=== PATIENT | female | born 1935 | race Caucasian/White ===

== ENCOUNTER → 2017-12-01 11:03 | Outpatient (CLI) | payer MEDICARE, SELFPAY ==
[2017-12-01 11:36] LABS: Absolute Lymphocyte Count 2.42 X10^3/ul (0.83-4.51); Basophil# 0.01 X10^3/uL; Basophil% 0.1 % (0-1); Eosinophil# 0.31 X10^3/uL; Eosinophils% 4.2 % (0-5); Hematocrit 47.5 % (37-47); Hemoglobin 15.1 g/dl (12.0-15.0); Lymphocyte # 2.42 X10^3/ul (4.0); Lymphocyte % 33.1 % (19-41); Mean Corp Hgb Conc 31.8 g/gl (32-36); Mean Corpuscular Hgb 29.4 pg (27.0-32.0); Mean Corpuscular Volume 92.6 fL (81-99); Mean Platelet Vol. 10.5 fl (6.2-12.0); Monocyte# 0.56 X10^3/uL; Monocyte% 7.7 % (0-10); Neutrophil % 54.8 % (47-70); Platelet Count 259 K/mm3 (150-450); RBC Distribution Width CV 13.6 % (11.6-14.6); RBC Distribution Width SD 46.1 fl (35.1-43.9); Red Blood Count 5.13 M/mm3 (4.2-5.4); White Blood Count 7.3 K/mm3 (4.4-11.0)
[2017-12-01 11:37] LABS: POSITIVE COUNT NO; POSITIVE DIFFERENTIAL NO; POSITIVE MORPHOLOGY NO
[2017-12-01 12:06] LABS: Vitamin B12 525 pg/mL (211-911)
[2017-12-01 12:13] LABS: AST(SGOT) 12 U/L (15-37); Alanine Aminotransfer ALT/SGPT 15 U/L (13-56); Albumin, Serum 3.8 g/dL (3.2-5.0); Alkaline Phosphatase 78 U/L (45-117); Anion Gap 6 (5-15); BUN 13 mg/dL (7-18); BUN/Creat Ratio 17.4 RATIO (10-20); Calcium,Total 8.9 mg/dL (8.5-10.1); Chloride 109 mmol/L (98-107); Creatinine, Serum 0.75 mg/dL (0.55-1.02); EST Glomerular Filtration Rate 79 mL/min (>60); Est Glom Filt Rate - Afr Amer 96 mL/min (>60); Globulin 3.8 g/dL (2.2-4.2); Glucose 74 mg/dL (74-106); Protein, Total 7.6 g/dL (6.4-8.2); Sodium Level 141 mmol/L (136-145); Thyroid Stim Hormone (TSH) 1.12 uIU/mL (0.358-3.74)
[2017-12-08 01:05] LABS: Rapid Plasmin Reagin (RPR) NONREACTIVE (NONREACTIVE)
== END ==
PROVIDERS: Family Provider Internal Medicine; PCP Internal Medicine; Visit Provider Psychiatry & Neurology Neurology
DX: F03.90 Unspecified dementia, unspecified severity, without behavioral disturbance, psychotic disturbance, mood disturbance, and anxiety (principal)
CPT/HCPCS: 36415; 80053; 82607; 84443; 85025; 86592

== ENCOUNTER → 2017-12-11 11:02 | Outpatient (CLI) | payer MEDICARE, SELFPAY ==
--- NOTE | 2017-12-11 11:33 | MRI_ITS ---
STUDY: MRI BRAIN WITHOUT CONTRAST REASON FOR EXAM: Female, 82 years old. Dementia. Forgetfulness x1 year. TECHNIQUE: Standardized multiplanar fat and water weighted pulse sequences were obtained. COMPARISON: CTA head and neck 06/10/2011. FINDINGS: No restricted diffusion to suspect acute or subacute ischemic infarct. No remote cortical-based ischemic infarct. Normal size of the ventricles and extra-axial spaces for the patient's age. Multiple periventricular and subcortical white matter T2 FLAIR hyperintensity foci in both cerebral hemispheres are chronic white matter ischemic changes. Normal bilateral basal ganglia. Normal thalami. There is no extra-axial fluid accumulation. Normal flow voids within the major intracranial circulation suggesting patency by spin echo criteria. Normal sella turcica, pituitary gland, infundibular stalk, optic chiasm and hypothalamus. Normal tectal plate and pineal gland. Normal midbrain, kalyan and medulla. Normal cerebellum. Normal basal cisterns. Normal bilateral temporal bones. Normal bilateral internal auditory canals. No demonstrated orbital abnormality, within the constraints of a routine brain study. Normal visualized paranasal sinuses. Normal calvarium and skull base. Normal visualized soft tissue structures. Normal visualized upper cervical spine. MRI/Brain without Contrast IMPRESSION: 1. No MRI evidence of acute or subacute ischemic infarct. 2. No MRI evidence of remote cortical-based ischemic infarct. 3. Multiple chronic white matter ischemic changes in both cerebral hemispheres. Electronically Signed: Prem Butler MD at 13:39 EDT , Service support ,
== END ==
PROVIDERS: Family Provider Internal Medicine; PCP Internal Medicine; Visit Provider Psychiatry & Neurology Neurology
DX: F03.90 Unspecified dementia, unspecified severity, without behavioral disturbance, psychotic disturbance, mood disturbance, and anxiety (principal); R41.3 Other amnesia
CPT/HCPCS: 70551

== ENCOUNTER → 2018-08-30 15:52 | Outpatient (CLI) | payer MEDICARE, SELFPAY ==
[2018-08-30 17:01] LABS: Absolute Lymphocyte Count 2.35 X10^3/ul (0.83-4.51); Absolute Neutrophil Count 5.5 X10^3/uL (2.0-7.7); Basophil# 0.03 X10^3/uL; Basophil% 0.3 % (0-1); Eosinophil# 0.62 X10^3/uL; Eosinophils% 6.7 % (0-5); Hematocrit 42.9 % (37-47); Hemoglobin 14.1 g/dl (12.0-15.0); Lymphocyte # 2.35 X10^3/ul (4.0); Lymphocyte % 25.4 % (19-41); Mean Corp Hgb Conc 32.9 g/gl (32-36); Mean Corpuscular Hgb 30.1 pg (27.0-32.0); Mean Corpuscular Volume 91.5 fL (81-99); Mean Platelet Vol. 10.5 fl (6.2-12.0); Monocyte# 0.71 X10^3/uL; Monocyte% 7.7 % (0-10); Neutrophil # 5.52 X10^3/uL (2.7-7.7); Neutrophil % 59.7 % (47-70); Platelet Count 266 K/mm3 (150-450); RBC Distribution Width CV 13.4 % (11.6-14.6); RBC Distribution Width SD 44.6 fl (35.1-43.9); Red Blood Count 4.69 M/mm3 (4.2-5.4); White Blood Count 9.3 K/mm3 (4.4-11.0)
[2018-08-30 17:10] LABS: POSITIVE COUNT NO; POSITIVE DIFFERENTIAL NO; POSITIVE MORPHOLOGY NO
[2018-08-30 17:20] LABS: Vitamin B12 508 pg/mL (211-911); Vitamin D,25 Hydroxy 27.1 ng/mL (29.95-100.01)
[2018-08-30 17:51] LABS: AST(SGOT) 18 U/L (15-37); Alanine Aminotransfer ALT/SGPT 23 U/L (13-56); Albumin, Serum 3.6 g/dL (3.2-5.0); Alkaline Phosphatase 78 U/L (45-117); Anion Gap 9 (5-15); BUN 25 mg/dL (7-18); BUN/Creat Ratio 25.8 RATIO (10-20); Calcium,Total 9.2 mg/dL (8.5-10.1); Chloride 105 mmol/L (98-107); Creatinine, Serum 0.97 mg/dL (0.55-1.02); EST Glomerular Filtration Rate 59 mL/min (>60); Est Glom Filt Rate - Afr Amer 71 mL/min (>60); Globulin 3.7 g/dL (2.2-4.2); Glucose 96 mg/dL (74-106); Protein, Total 7.3 g/dL (6.4-8.2); Sodium Level 139 mmol/L (136-145); Thyroid Stim Hormone (TSH) 1.22 uIU/mL (0.358-3.74)
[2018-08-31 01:11] LABS: Rapid Plasmin Reagin (RPR) NONREACTIVE (NONREACTIVE)
== END ==
PROVIDERS: Visit Provider Family Medicine Geriatric Medicine
DX: Z00.00 Encounter for general adult medical examination without abnormal findings (principal); E55.9 Vitamin D deficiency, unspecified; G30.9 Alzheimer's disease, unspecified
CPT/HCPCS: 36415; 80053; 82306; 82607; 82746; 84443; 85025; 86592

== ENCOUNTER → 2018-11-29 11:31 | Outpatient (CLI) | payer MEDICARE, SELFPAY ==
[2018-11-29 12:29] LABS: Absolute Lymphocyte Count 2.09 X10^3/ul (0.83-4.51); Absolute Neutrophil Count 3.6 X10^3/uL (2.0-7.7); Basophil# 0.03 X10^3/uL; Basophil% 0.4 % (0-1); Eosinophil# 0.46 X10^3/uL; Eosinophils% 6.6 % (0-5); Hematocrit 41.7 % (37-47); Hemoglobin 13.5 g/dl (12.0-15.0); Lymphocyte # 2.09 X10^3/ul (4.0); Lymphocyte % 30.2 % (19-41); Mean Corp Hgb Conc 32.4 g/gl (32-36); Mean Corpuscular Hgb 29.9 pg (27.0-32.0); Mean Corpuscular Volume 92.5 fL (81-99); Mean Platelet Vol. 10.5 fl (6.2-12.0); Monocyte# 0.69 X10^3/uL; Neutrophil # 3.64 X10^3/uL (2.7-7.7); Neutrophil % 52.7 % (47-70); Platelet Count 271 K/mm3 (150-450); RBC Distribution Width CV 13.5 % (11.6-14.6); RBC Distribution Width SD 44.6 fl (35.1-43.9); Red Blood Count 4.51 M/mm3 (4.2-5.4); White Blood Count 6.9 K/mm3 (4.4-11.0)
[2018-11-29 12:32] LABS: POSITIVE COUNT NO; POSITIVE DIFFERENTIAL NO; POSITIVE MORPHOLOGY NO
[2018-11-29 12:47] LABS: Vitamin D,25 Hydroxy 26.2 ng/mL (29.95-100.01)
[2018-11-29 12:50] LABS: ALB/GLOB Ratio 1.1 RATIO (0.9-2.4); AST(SGOT) 16 U/L (15-37); Alanine Aminotransfer ALT/SGPT 24 U/L (13-56); Albumin, Serum 3.6 g/dL (3.2-5.0); Alkaline Phosphatase 74 U/L (45-117); Anion Gap 4 (5-15); BUN 19 mg/dL (7-18); BUN/Creat Ratio 20.8 RATIO (10-20); Calcium,Total 9.1 mg/dL (8.5-10.1); Chloride 108 mmol/L (98-107); Creatinine, Serum 0.91 mg/dL (0.55-1.02); EST Glomerular Filtration Rate 62 mL/min (>60); Est Glom Filt Rate - Afr Amer 76 mL/min (>60); Globulin 3.4 g/dL (2.2-4.2); Glucose 96 mg/dL (74-106); Potassium 3.8 mmol/L (3.5-5.1); Sodium Level 141 mmol/L (136-145); Thyroid Stim Hormone (TSH) 1.41 uIU/mL (0.358-3.74)
== END ==
PROVIDERS: Visit Provider Family Medicine Geriatric Medicine
DX: E55.9 Vitamin D deficiency, unspecified (principal); I10 Essential (primary) hypertension
CPT/HCPCS: 36415; 80053; 82306; 84443; 85025

== ENCOUNTER → 2019-02-28 08:48 | Outpatient (CLI) | payer MEDICARE, SELFPAY ==
[2019-02-28 12:50] LABS: Absolute Lymphocyte Count 1.96 X10^3/uL (0.83-4.51); Absolute Neutrophil Count 4.1 X10^3/uL (2.0-7.7); Basophil# 0.02 X10^3/uL; Basophil% 0.3 % (0-1); Eosinophil# 0.31 X10^3/uL; Eosinophils% 4.4 % (0-5); Hematocrit 43.9 % (37-47); Hemoglobin 14.1 g/dL (12.0-15.0); Lymphocyte # 1.96 X10^3/ul (4.0); Lymphocyte % 27.8 % (19-41); Mean Corp Hgb Conc 32.1 g/dL (32-36); Mean Corpuscular Hgb 29.8 pg (27.0-32.0); Mean Corpuscular Volume 92.8 fL (81-99); Mean Platelet Vol. 10.4 fl (6.2-12.0); Monocyte# 0.59 X10^3/uL; Monocyte% 8.4 % (0-10); NRBC Flagged by Analyzer 0 % (0-5); Neutrophil # 4.13 X10^3/uL (2.7-7.7); Neutrophil % 58.7 % (47-70); Platelet Count 256 K/mm3 (150-450); RBC Distribution Width CV 12.9 % (11.6-14.6); RBC Distribution Width SD 43.9 fl (35.1-43.9); Red Blood Count 4.73 M/mm3 (4.2-5.4)
[2019-02-28 13:07] LABS: Vitamin D,25 Hydroxy 34.4 ng/mL (29.95-100.01)
[2019-02-28 13:37] LABS: ALB/GLOB Ratio 1.1 RATIO (0.9-2.4); AST(SGOT) 14 U/L (15-37); Alanine Aminotransfer ALT/SGPT 19 U/L (13-56); Albumin, Serum 3.8 g/dL (3.2-5.0); Alkaline Phosphatase 73 U/L (45-117); Anion Gap 4 (5-15); BUN 21 mg/dL (7-18); BUN/Creat Ratio 22.6 RATIO (10-20); Calcium,Total 9.8 mg/dL (8.5-10.1); Chloride 106 mmol/L (98-107); Creatinine, Serum 0.93 mg/dL (0.55-1.02); EST Glomerular Filtration Rate 61 mL/min (>60); Est Glom Filt Rate - Afr Amer 74 mL/min (>60); Globulin 3.5 g/dL (2.2-4.2); Glucose 82 mg/dL (74-106); Potassium 4.2 mmol/L (3.5-5.1); Protein, Total 7.3 g/dL (6.4-8.2); Sodium Level 140 mmol/L (136-145); Thyroid Stim Hormone (TSH) 1.42 uIU/mL (0.358-3.74)
== END ==
PROVIDERS: Family Provider Family Medicine Geriatric Medicine; PCP Family Medicine Geriatric Medicine; Visit Provider Family Medicine Geriatric Medicine
DX: E55.9 Vitamin D deficiency, unspecified (principal); I10 Essential (primary) hypertension
CPT/HCPCS: 36415; 80053; 82306; 84443; 85025

== ENCOUNTER → 2019-06-27 15:27 | Outpatient (CLI) | payer MEDICARE, SELFPAY ==
--- NOTE | 2019-06-27 15:31 | BI_ITS ---
MAMMOGRAPHY - UNILATERAL SCREENING: LEFT BREAST REASON FOR EXAM: Female, 83 years old. Routine annual screening examination (unilateral). PERTINENT HISTORY: Personal history of breast cancer. Prior right mastectomy. Mother with breast cancer. TECHNIQUE: Digital unilateral breast leon (3D mammographic acquisition) in the CC and MLO projections. 2-D mediolateral oblique (MLO) and craniocaudad (CC) views of both breasts were obtained. CAD: Full Field Digital Mammography with Computer Added Detection was performed. COMPARISON: Comparison is made with prior occipital examination dated June 26, 2018. FINDINGS: Breast Composition: The breasts are almost entirely fatty. There are no dominant masses or suspicious calcifications. No other significant abnormalities are identified. There has been no significant change since the prior study. BI/SCREEN MAMM (CAD) W/LEON UNI L IMPRESSION: Stable unilateral screening mammogram. Yearly follow-up mammogram recommended. (A) ASSESSMENT CATEGORY: BIRADS Category 1: Negative. A letter regarding these results will be sent to the patient by the facility within 30 days. Approximately 10% of breast cancers are not detected by mammography. A normal mammogram should not delay biopsy of a clinically suspicious abnormality. [id number] Electronically Signed: Jamar Rodgers, at 8:59 EST , Service support ,
== END ==
PROVIDERS: Family Provider Family Medicine Geriatric Medicine; PCP Family Medicine Geriatric Medicine; Referring Provider Family Medicine Geriatric Medicine; Visit Provider Family Medicine Geriatric Medicine
DX: Z12.31 Encounter for screening mammogram for malignant neoplasm of breast (principal); Z85.3 Personal history of malignant neoplasm of breast; Z90.11 Acquired absence of right breast and nipple; Z80.3 Family history of malignant neoplasm of breast
CPT/HCPCS: 77063; 77067

== ENCOUNTER → 2019-09-16 10:46 | Outpatient (CLI) | payer MEDICARE, SELFPAY ==
[2019-09-16 12:17] LABS: Absolute Lymphocyte Count 2.35 X10^3/uL (0.83-4.51); Absolute Neutrophil Count 5.2 X10^3/uL (2.0-7.7); Basophil# 0.04 X10^3/uL; Basophil% 0.4 % (0-1); Eosinophil# 0.46 X10^3/uL; Eosinophils% 5.2 % (0-5); Hematocrit 44.7 % (37-47); Hemoglobin 14.2 g/dL (12.0-15.0); Lymphocyte # 2.35 X10^3/ul (4.0); Lymphocyte % 26.4 % (19-41); Mean Corp Hgb Conc 31.8 g/dL (32-36); Mean Corpuscular Hgb 29.6 pg (27.0-32.0); Mean Corpuscular Volume 93.3 fL (81-99); Mean Platelet Vol. 10.4 fl (6.2-12.0); Monocyte# 0.83 X10^3/uL; Monocyte% 9.3 % (0-10); NRBC Flagged by Analyzer 0 % (0-5); Neutrophil # 5.19 X10^3/uL (2.7-7.7); Neutrophil % 58.5 % (47-70); Platelet Count 273 K/mm3 (150-450); RBC Distribution Width SD 44.4 fl (35.1-43.9); Red Blood Count 4.79 M/mm3 (4.2-5.4); White Blood Count 8.9 K/mm3 (4.4-11.0)
[2019-09-16 12:37] LABS: Vitamin D,25 Hydroxy 34.2 ng/mL (29.95-100.01)
[2019-09-16 12:48] LABS: ALB/GLOB Ratio 0.9 RATIO (0.9-2.4); AST(SGOT) 14 U/L (15-37); Alanine Aminotransfer ALT/SGPT 25 U/L (13-56); Albumin, Serum 3.5 g/dL (3.2-5.0); Alkaline Phosphatase 81 U/L (45-117); Anion Gap 4 (5-15); BUN 22 mg/dL (7-18); BUN/Creat Ratio 19.1 RATIO (10-20); Calcium,Total 9.9 mg/dL (8.5-10.1); Chloride 106 mmol/L (98-107); Creatinine, Serum 1.15 mg/dL (0.55-1.02); EST Glomerular Filtration Rate 48 mL/min (>60); Est Glom Filt Rate - Afr Amer 58 mL/min (>60); Globulin 3.9 g/dL (2.2-4.2); Glucose 86 mg/dL (74-106); Potassium 4.4 mmol/L (3.5-5.1); Protein, Total 7.4 g/dL (6.4-8.2); Sodium Level 140 mmol/L (136-145); Thyroid Stim Hormone (TSH) 1.16 uIU/mL (0.358-3.74)
== END ==
PROVIDERS: PCP Family Medicine Geriatric Medicine; Visit Provider Family Medicine Geriatric Medicine
DX: E55.9 Vitamin D deficiency, unspecified (principal); I10 Essential (primary) hypertension
CPT/HCPCS: 36415; 80053; 82306; 84443; 85025

== ENCOUNTER → 2019-10-18 | Outpatient (CLI) | payer MEDICARE, SELFPAY ==
--- NOTE | 2019-10-18 11:10 | LES_PTH ---
PATIENT: DIDI ADAIR LOC: [facility] U#:[id number] AGE/SX: 83/F ROOM: RE10/18/[address]: Dr. Devante Ruiz MD : [id number] BED: DIS: 10/18/2019 SPEC #: [id number] RECD: 10/18/19 15:21 STATUS: JONAS REFrank #: [id number] CHRISSY: 10/18/19 11:[address]: Devante Ruiz DEPT: SURGICAL PATHOLOGY RECD BY: Omar Tanner ENTERED: 10/21/19 07:00 SP TYPE: Lesion OTHR DR: Dr. Jayesh Chavez MD Tissues: Skin of eyelid, NOS Procedures: Surgery Specimen Level IV HEADER OPERATION: Exam RUL papilloma PRE-OP DIAGNOSIS: Growth last six months TISSUE SUBMITTED: RUL papilloma MICROSCOPIC DIAGNOSIS Right upper eyelid lesion, biopsy: Squamous papilloma. AM:helen 10/22/19 MICROSCOPIC DESCRIPTION Slides are reviewed. GROSS DESCRIPTION Received in fixative is one container labeled with the patient's name and designated RUL. The specimen consists of a piece of casey-white skin measuring 0.5 x 0.3 x 0.1 cm. The specimen is totally submitted in one cassette. / SJ:helen 10/21/19 TC:5 CPT: 18536
== END | disposition home or self-care (01) ==
LOC: LABSPEC 15:28
PROVIDERS: PCP Family Medicine Geriatric Medicine; Referring Provider Ophthalmology; Visit Provider Ophthalmology
DX: D23.111 Other benign neoplasm of skin of right upper eyelid, including canthus (principal)
CPT/HCPCS: 88305

== ENCOUNTER 2019-12-29 22:49 | Inpatient (IN) | payer MEDICARE, SELFPAY ==
[2019-12-29 22:49] VITALS: BP 141/88; PULSE 99; RESP 18; TEMP 36.3; O2SAT 93; BMI 31.6
--- NOTE | 2019-12-29 23:12 | EKG12_ITS ---
Test Reason : SOB Blood Pressure : / mmHG Vent. Rate : 080 BPM Atrial Rate : 080 BPM P-R Int : 164 ms QRS Dur : 112 ms QT Int : 414 ms P-R-T Axes : 051 068 206 degrees QTc Int : 477 ms Sinus rhythm with Premature supraventricular complexes Possible Left atrial enlargement Septal infarct , age undetermined Confirmed by RIDDHI COSTELLO, SAL ([id number]), desk editor JUAN JULIEN ([id number]) on 01/07/2020 1:52:36 PM Referred By: MAURI Confirmed By:SAL HANNON MD
--- NOTE | 2019-12-29 23:12 | RAD_ITS ---
STUDY: X-RAY CHEST REASON FOR EXAM: Female, 84 years old. CP, SOB TECHNIQUE: Frontal view COMPARISON: None. FINDINGS: There are mild fibrotic lung changes. The lungs are well-expanded. There is no demonstrated pleural abnormality. The heart is mildly enlarged. Normal mediastinum and sumaya. Normal visualized pulmonary arteries. Normal visualized aortic arch and descending thoracic aorta. Normal visualized thoracic spine. Normal visualized ribs, clavicles, and shoulders. There is no demonstrated abnormality of the visualized soft tissue structures of the upper abdomen. RAD/Chest 1 View (Portable) IMPRESSION: There are mild fibrotic lung changes. The lungs are well-expanded. There is no demonstrated pleural abnormality. The heart is mildly enlarged. Electronically Signed: Nathen Maddox MD at 1:51 EDT , Service support ,
--- NOTE | 2019-12-29 23:13 | ED.DCSUM_ITS ---
- ER Visit Summary Date of Service: 12/29/19 Chief Complaint: Shortness of breath and anxiety History of Present Illness: The patient is a 84 F 3 of dementia, hypertension and breast cancer 15 years ago. According to the daughter patient has had some intermittent episodes of shortness of breath and anxiety today. Denies any nausea, vomiting. No fever. No cough. No chest pain. No history of DVT or PE. No hemoptysis. No leg pain or swelling. No recent travel, surgery, hospitalization or immobilization. Physical Examination: Older female accompanied by her daughter vital signs are stable afebrile. Pulse ox 93% on room air no signs hypoxia. HEENT exam unremarkable. Neck nontender no JVD. No lymphadenopathy. Lungs clear to auscultation bilaterally. Heart regular rate and rhythm no murmur rate about 95. Abdomen soft nontender normal bowel sounds no peritoneal signs. Patient is moving all 4 extremities. Strong radial pulse. Calves are nontender without edema or cords. Neurologically she is awake and alert with no focal motor deficits. Test Results: Formal chest x-ray 1 view read by myself and the radiologist shows cardiomegaly with chronic fibrotic changes in the lungs. No pneumonia. No effusion. EKG shows a sinus rhythm rate of 80 with inverted T waves in V3 V5 which is new unchanged from prior EKG. There is no ST elevation. The most recent EKG I have for comparison is 9 years ago in 2010. CBC shows a white count 12.4. Hemoglobin 12.4. Chemistries unremarkable normal gap. Troponin indeterminate 0.21. Emergency Department Course and Treatment: Older female with reported dyspnea. Clinically has an unimpressive exam. Treatment Plan: Repeat exam 2:27 AM. Patient her daughter and I discussed her test results. With an abnormal EKG and indeterminate troponin with a history of shortness of breath she will be admitted for further evaluation. Again she is never had a DVT or PE or risk factors for that. I discussed any risk factors with her daughter. Disposition: Admission Impression: Acute dyspnea of uncertain etiology Normal EKG with changes from prior and indeterminate troponin History of dementia This note was generated with [employer] software. It may contain incorrect words, spelling, and punctuation that were not noted in review of the chart prior to signing ED Disposition - Plan for ED Patient: Referrals: Jayesh Chavez Chi, MD [Primary Care Provider] -
[2019-12-30] VITALS (12 sets, daily range): BP systolic 118–139; BP diastolic 68–91; PULSE 64–88; RESP 16–26; TEMP 36.4–36.8; O2SAT 90–99; BMI 30.1; BMI 31.6
[2019-12-30 00:37] LABS: Absolute Lymphocyte Count 1.22 X10^3/uL (0.83-4.51); Absolute Neutrophil Count 10.1 X10^3/uL (2.0-7.7); Basophil# 0.04 X10^3/uL; Basophil% 0.3 % (0-1); Eosinophil# 0.16 X10^3/uL; Eosinophils% 1.3 % (0-5); Hemoglobin 12.4 g/dL (12.0-15.0); Lymphocyte # 1.22 X10^3/ul (4.0); Lymphocyte % 9.9 % (19-41); Mean Corpuscular Hgb 30.2 pg (27.0-32.0); Mean Corpuscular Volume 97.3 fL (81-99); Mean Platelet Vol. 10.9 fl (6.2-12.0); Monocyte# 0.76 X10^3/uL; Monocyte% 6.1 % (0-10); NRBC Flagged by Analyzer 0 % (0-5); Neutrophil # 10.13 X10^3/uL (2.7-7.7); Platelet Count 249 K/mm3 (150-450); RBC Distribution Width CV 13.7 % (11.6-14.6); RBC Distribution Width SD 48.4 fl (35.1-43.9); Red Blood Count 4.11 M/mm3 (4.2-5.4); White Blood Count 12.4 K/mm3 (4.4-11.0)
[2019-12-30 01:01] LABS: Anion Gap 5 (5-15); BUN 17 mg/dL (7-18); BUN/Creat Ratio 17.7 RATIO (10-20); Chloride 107 mmol/L (98-107); Creatinine, Serum 0.96 mg/dL (0.55-1.02); EST Glomerular Filtration Rate 59 mL/min (>60); Est Glom Filt Rate - Afr Amer 71 mL/min (>60); Estimated Creatinine Clearance 39.25 ml/min; Glucose 139 mg/dL (74-106); Potassium 4.6 mmol/L (3.5-5.1); Sodium Level 139 mmol/L (136-145)
[2019-12-30 02:12] LABS: Bacteria 0 SEEN /hpf (None Seen); Mucous, Urine 0 SEEN /hpf (<or=2+); Red Blood Cells-Urine 0 SEEN /hpf (0-5); Squamous Epithelial Cells - UA 0 SEEN /hpf (5-10)
[2019-12-30 02:13] LABS: Color, Urine Yellow (Yellow); Glucose, Dipstick Normal (Normal); Ketone-Dipstick Negative (Negative); Leukocyte Esterase-Dipstick 100 /ul (Negative); Nitrite-Dipstick Negative (Negative); Occult Blood-Urine Negative /ul (Negative); Protein-Dipstick Negative (Negative); Specific Gravity, Urine 1.025 (1.002-1.030); Urine Bilirubin Dipstick Negative (Negative); Urine Clarity Clear (Clear); Urine Urobilinogen Normal (Normal)
--- NOTE | 2019-12-30 02:33 | PCM.HP.STD ---
Problem List (1) Sepsis Status: Acute (2) UTI (urinary tract infection) Status: Acute (3) Abnormal EKG Status: Acute (4) Elevated troponin Status: Acute History of Present Illness Date of Admission: 12/30/19 Chief Complaint: sob The patient is a 84 year old F with a significant history of breast cancer status post mastectomy and chemoradiation; hypertension and dementia who presents emergency department with shortness of breath. Her symptoms started on the same day of presentation. Associated for symptoms is productive cough of clear sputum. Her cough is not enough to bother him. Reportedly she has been having post nasal drip. At emergency department her troponin was elevated. She had leukocytosis. She had tachypnea and abnormal urinalysis. Past Medical History Medical History: Medical History (Last Updated 12/30/19 @ 03:[address] Reg Luevano MD) HTN (hypertension) I10 Allergies No Known Allergies Allergy (Verified 12/29/19 22:51) Home Medications: Ambulatory Orders Medication Instructions Recorded Ascorbic Acid [Vitamin C] 1,000 mg PO DAILY 12/30/19 Calcium Carbonate/Vitamin D3 600 mg PO DAILY 12/30/19 [Calcium 600 + Vit D Tablet] Cholecalciferol (VIT D3) [Vitamin 1,000 unit PO DAILY 12/30/19 D] Donepezil HCl [Aricept] 10 mg PO DAILY 12/30/19 Lisinopril/Hydrochlorothiazide 1 ea PO DAILY 12/30/19 [Lisinopril-Hctz 20-12.5 mg Tab] Memantine HCl 10 mg PO BID 12/30/19 Sertraline HCl 50 mg PO DAILY 12/30/19 Timolol 0.5% [Timoptic] 1 drp EACH EYE BID 12/30/19 Surgical History: mastectomy Lives: With Family Smoking Status: Former smoker - *Family History Maternal History Items: - - Denies maternal medical history Paternal History Items: - - Denies pertinent medical history Review of Systems Constitutional: Denies: Chills, Fever, Weight Change HEENT: Denies: Head Aches, Sinus Congestion, Sinus Drainage Cardiovascular: Denies: Chest Pain, Palpitations Respiratory: Denies: Cough, Shortness of breath at rest, Sputum production Gastrointestinal: Denies: Abdominal Pain, Nausea, Vomiting Genitourinary: Denies: Dysuria Musculoskeletal: Denies: Joint Pain, Joint Tenderness Skin: Denies: Rash, Wounds Neurological: Denies: Numbness, Tingling, Focal weakness Psychiatric: Reports: Anxiety. Denies: Depression, Homicidal Ideations, Suicidal Ideations Hematologic/ Lymphatic: Denies: Easy Bruising, Easy Bleeding VTE Information - Inpt Only VTE Present on Admission: No VTE Mechan Device Prophylaxis: None VTE Pharm Prophylaxis ordered?: Yes Patient Problems: Active and Suspected Problems (Last Updated 12/30/19 @ 03:[address] Reg Luevano MD) Sepsis (Acute) UTI (urinary tract infection) (Acute) Abnormal EKG (Acute) Elevated troponin (Acute) - Physical Exam Vitals/I&O's: Vital Signs Temp Pulse Resp BP Pulse Ox 97.9 F 75 19 H 133/72 H 93 12/30/19 01:43 12/30/19 01:43 12/30/19 01:43 12/30/19 01:43 12/30/19 01:43 Oxygen Flow Rate (L/min) 2 Oxygen Delivery Method Nasal Cannula Weight: 86.183 kg Body Mass Index (BMI) 31.6 General: Alert, Oriented x3, Cooperative HEENT: Atraumatic, PERRLA, EOMI, Normocephalic Neck: Supple, No JVD, Negative Carotid Bruits Lungs: Clear to auscultation, Normal air movement, Tachypneic Cardiovascular: Regular rate, Normal S1, Normal S2, No murmurs Abdomen: Bowel Sounds Present, Soft, Non Tender Extremities: No edema, Capillary Refill Less than 3 Seconds Skin: No rashes, No breakdown Musculoskeletal: No Tenderness to Palpation of Joints or Extremities Neurological: Cranial nerves II-XII grossly intact Psych/Mental Status: Normal Affect, Appropriate Laboratory Results 12/30/19 00:29: WBC 12.4 H, RBC 4.11 L, Hgb 12.4, Hct 40.0, MCV 97.3, MCH 30.2, MCHC 31.0 L, RDW Std Deviation 48.4 H, RDW Coeff of Michael 13.7, Plt Count 249, MPV 10.9, Immature Gran % (Auto) 0.400, Neut % (Auto) 82.0 H, Lymph % (Auto) 9.9 L, [place] % (Auto) 6.1, Eos % (Auto) 1.3, Baso % (Auto) 0.3, Absolute Neuts (auto) 10.1 H, Absolute Lymphs (auto) 1.22, Nucleated RBC % 0 12/30/19 00:29: Sodium 139, Potassium 4.6, Chloride 107, Carbon Dioxide 27.0, Anion Gap 5, BUN 17, Creatinine 0.96, Estim Creat Clear Calc 39.25, Est GFR (MDRD) Af Amer 71, Est GFR (MDRD) Non-Af 59 L, BUN/Creatinine Ratio 17.7, Glucose 139 H, Calcium 9.0, Troponin I 0.210 H 12/30/19 02:05: Urine Color Yellow, Urine Clarity Clear, Urine pH 5.0, Ur Specific [place] 1.025, Urine Protein Negative, Urine Glucose (UA) Normal, Urine Ketones Negative, Urine Occult Blood Negative, Urine Nitrite Negative, Urine Bilirubin Negative, Urine Urobilinogen Normal, Ur Leukocyte Esterase 100 H, Urine RBC Pending, Urine WBC Pending, Ur Squamous Epith Cells Pending, Urine Bacteria Pending, Urine Mucus Pending Assessment/Plan All Active Problems (Last Updated 12/30/19 @ 03:[address] Reg Luevano MD) Sepsis (Acute) UTI (urinary tract infection) (Acute) Abnormal EKG (Acute) Elevated troponin (Acute) The patient is a 84 year old F with a significant history of hypertension and dementia who presents emergency department with shortness of breath; productive cough and found to have abnormal urinalysis; and elevated troponin as well as a tachypnea and leukocytosis. Dyspnea of unclear etiology. Admit to PCU since troponin is elevated. Discussed with admitted department doctor to get a covid screen which returned negative. Her overall risk for COVID is negative so admitted to regular floor?PCU. Chest x-ray is unrevealing. Different diagnoses include anxiety. Elevated troponin/abnormal EKG Trend Repeat EKG in a.m. Sepsis Patient meets SIRS with tachypnea and leukocytosis. Of note she has no urinary symptoms and her urine bacteria is negative. However she has elevated leukocyte esterase. Will treat as sepsis secondary to cystitis. Start ceftriaxone. Get blood cultures. Get lactic acid. Trend CBC and BMP. Hypertension On presentation blood pressure was now within goal. Continue adequate thiazide and lisinopril. Trend blood pressures. Adjust blood pressure medication as necessary. DVT Prophylaxis Subcutaneous Lovenox. Inpatient E&M: 29555 Init Hosp L3
[2019-12-30 02:35] LABS: White Blood Cells 10-25 SEEN /hpf (0-5)
[2019-12-30 07:08] LABS: Lactic Acid 0.7 mmol/L (0.4-1.9)
[2019-12-30] MEDS: Ceftriaxone 1 GM/50 ML BAG IV (08:18)
[2019-12-30] MEDS: Enoxaparin 40 MG/0.4 ML Syringe SC (08:19)
[2019-12-30] MEDS: Memantine Hydrochloride 10 MG Tablet PO ×2 (08:19→22:48)
[2019-12-30] MEDS: hydroCHLOROthiazide 12.5mg 12.5 MG PO (08:19)
[2019-12-30] MEDS: Lisinopril 20 MG Tablet PO (08:19)
[2019-12-30] MEDS: Donepezil HCl 10 MG Tablet PO (08:19)
[2019-12-30] MEDS: Sertraline 50 MG Tablet PO (08:19)
[2019-12-30] MEDS: Timolol 0.5% 5ML OPTH.BTL 1 DRP EACH EYE ×2 (08:21→22:49)
--- NOTE | 2019-12-30 08:28 | ECHOCS_ITS ---
Reason For Study: ELEVATED TROPONIN Procedure This was a 2D Doppler, Color Flow transthoracic echocardiogram. Contrast injection was performed. Exam performed portable in patient room. Left Ventricle Mildly dilated left ventricle. Layered thrombus in LV apex. The estimated ejection fraction is 35 %. Stage 2 diastolic dysfunction. There are regional wall motion abnormalities as specified. Right Ventricle Normal RV size. Normal systolic function. Atria The left atrium is moderately enlarged. Normal right atrium. Mitral Valve Normal mitral valve. Tricuspid Valve Normal tricuspid valve. Mild (1+) eccentric tricuspid valve insufficiency. Pulmonary artery systolic pressure is 34 mmHg. Aortic Valve Trisinus/trileaflet aortic valve. Mild (1+) aortic valve insufficiency. Pulmonic Valve Normal pulmonic valve. Great Vessels Normal aortic root. The pulmonary artery is normal size. Normal inferior vena cava. Pericardium/Pleural No pericardial effusion. Medication Diluted definity 3.0ml given slow IV push to enhance endocardial definition. MMode/2D Measurements & Calculations LVIDd: 6.1 cm IVSd: 1.0 cm LVOT diam: 2.0 cm LVIDs: 5.1 cm LVPWd: 0.76 cm RVDd: 3.5 cm FS: 17.1 % LVOT area: 3.0 cm2 Ao root diam: 3.2 cm LAV(MOD-bp): 81.4 ml LA A4 area: 27.1 cm2 LAV(MOD-bp) Indexed: 42.0 ml/m2 LAV(MOD-sp2): 57.1 ml LAV(MOD-sp4): 99.5 ml LA dimension(2D): 4.8 cm RA A4 area: 17.3 cm2 Time Measurements MV dec time: 0.18 sec Doppler Measurements & Calculations MV E max rustam: 80.1 cm/sec Lat Peak E' Rustam: 4.3 cm/sec Med Peak E' Rustam: 2.5 cm/sec MV A max rustam: 55.6 cm/sec E/E' lat: 18.8 E/E' med: 32.2 MV E/A: 1.4 Ao V2 max: 196.8 cm/sec AI max rustam: 289.6 cm/sec LV V1 max: 75.0 cm/sec Ao max P.5 mmHg AI max P.6 mmHg LV V1 max P.3 mmHg Ao V2 mean: 147.8 cm/sec AI dec slope: 183.6 cm/sec2 LV V1 mean P.5 mmHg Ao mean P.5 mmHg AI P1/2t: 462.0 msec LV V1 mean: 57.7 cm/sec Ao V2 VTI: 42.5 cm LV V1 VTI: 16.8 cm EMANI(I,D): 1.2 cm2 EMANI(V,D): 1.2 cm2 SV(LVOT): 51.0 ml PA V2 max: 86.5 cm/sec PI end-d rustam: 102.9 cm/sec TR max rustam: 264.6 cm/sec TR max P.2 mmHg Interpretation Summary Mildly dilated left ventricle. The estimated ejection fraction is 35 %. Stage 2 diastolic dysfunction. Layered thrombus in LV apex Mild (1+) eccentric tricuspid valve insufficiency. The left atrium is moderately enlarged. Ordering Physician: Curtis Welch Referring Physician: JOSELYN JOHNSON Performed By: Delphine Simmons, ARIN, RVT
--- NOTE | 2019-12-30 10:28 | CON.PCM_ITS ---
Reason for Consult Date of Consultation: 12/30/19 Reason for Consultation: Shortness of breath and abnormal cardiac enzymes History of Present Illness: The patient is a 84 year old F with a previous history of hypertension as well as breast carcinoma status post mastectomy 15 years ago and with chemotherapy and radiation. She presented to the emergency room because of progressive shortness of breath. She has had no dizziness or diaphoresis no near syncope or syncope. She has been compliant with her medication. She was seen in the emergency room and noted to have an abnormal EKG and mildly abnormal cardiac troponin enzymes. She denies any chest pain or pedal edema. She has not seen a second facing baster. As part of her work-up an echocardiogram was performed which demonstrated left ventricular systolic dysfunction. [] Past Medical History Allergies/Adverse Reactions: Allergies No Known Allergies Allergy (Verified 12/29/19 22:51) Home Medications: Ambulatory Orders Medication Instructions Recorded Ascorbic Acid [Vitamin C] 1,000 mg PO DAILY 12/30/19 Calcium Carbonate/Vitamin D3 600 mg PO DAILY 12/30/19 [Calcium 600 + Vit D Tablet] Cholecalciferol (VIT D3) [Vitamin 1,000 unit PO DAILY 12/30/19 D] Donepezil HCl [Aricept] 10 mg PO DAILY 12/30/19 Lisinopril/Hydrochlorothiazide 1 ea PO DAILY 12/30/19 [Lisinopril-Hctz 20-12.5 mg Tab] Memantine HCl 10 mg PO BID 12/30/19 Sertraline HCl 50 mg PO DAILY 12/30/19 Timolol 0.5% [Timoptic] 1 drp EACH EYE BID 12/30/19 Surgical History: mastectomy - *Family History Maternal History Items: - - Denies maternal medical history Paternal History Items: - - Denies pertinent medical history Lives: With Family Smoking Status: Former smoker Alcohol: None Drugs: None Review of Systems - Review of Systems General: Reports: Fatigue. Denies: Fever, Night Sweats HEENT: Denies: Vision Change Cardiovascular: Reports: Shortness of Breath. Denies: Chest Discomfort, Orthopnea, PND, Peripheral Edema, Palpitations, Lightheadedness, Dizziness, Near Syncope, Syncope Respiratory: Denies: Cough, Sputum Production, Hemoptysis Gastrointestinal: Denies: Hematemesis, Hematochezia, Melena Genitourinary: Denies: Dysuria, Hematuria Muscoloskeletal: Denies: Myalgias Skin: Denies: Rash Neurological: Denies: Dizziness Psychiatric: Denies: Anxiety Endocrine: Denies: Unexplained Weight Loss Subjectve: Pleasant lady in no distress appears to be minimally confused Objective: Vital Signs Temp Pulse Resp BP Pulse Ox 97.7 F L 64 16 118/68 98 12/30/19 06:10 12/30/19 06:10 12/30/19 06:10 12/30/19 06:10 12/30/19 06:10 Oxygen Flow Rate (L/min) 2 Oxygen Delivery Method Room Air Weight: 186 lb 11.704 oz Body Mass Index (BMI) 30.1 Intake and Output for Last 24 Hours 12/28/19 12/29/19 12/30/19 23:59 23:59 23:59 Intake Total 50 / 50 Balance 50 / 50 General: Awake, Alert, Oriented x 3 HEENT: PERRL, EOMI, Sclera Non Icteric Neck: Supple, Good ROM, No Lymph Node Enlargement Lungs: Clear to auscultation Cardiovascular: Regular Rhythm, Normal S1, Normal S2, No Murmurs, No Rubs, No Gallops Vascular: No Carotid Bruits, Normal Femoral Pulses, Normal Radial Pulses, Normal Dorsalis Pedal Pulse, Normal Posterior Tibial Pulses Abdomen: Bowel Sounds Present, Soft, Non Tender, No HSM, No Organomegaly Extremities: No Cyanosis, No Clubbing, No edema, - - Mild varicosities Musculoskeletal: No Erythema Skin: No Rashes Lymphatic: No Lymph Node Enlargement Neurological: No Focal Motor or Sensory Deficit Psych/Mental Status: Appropriate 12/30/19 00:29: WBC 12.4 H, RBC 4.11 L, Hgb 12.4, Hct 40.0, MCV 97.3, MCH 30.2, MCHC 31.0 L, Plt Count 249, MPV 10.9, Immature Gran % (Auto) 0.400, Neut % (Auto) 82.0 H, Lymph % (Auto) 9.9 L, [place] % (Auto) 6.1, Eos % (Auto) 1.3, Baso % (Auto) 0.3, Absolute Neuts (auto) 10.1 H, Nucleated RBC % 0 12/30/19 00:29: Sodium 139, Potassium 4.6, Chloride 107, Carbon Dioxide 27.0, Anion Gap 5, BUN 17, Creatinine 0.96, Est GFR (MDRD) Af Amer 71, Est GFR (MDRD) Non-Af 59 L, BUN/Creatinine Ratio 17.7, Glucose 139 H, Calcium 9.0, Troponin I 0.210 H 12/30/19 02:05: Urine Color Yellow, Urine Clarity Clear, Urine pH 5.0, Ur Specific [place] 1.025, Urine Protein Negative, Urine Glucose (UA) Normal, Urine Ketones Negative, Urine Occult Blood Negative, Urine Nitrite Negative, Urine Bilirubin Negative, Urine Urobilinogen Normal, Ur Leukocyte Esterase 100 H, Urine RBC 0 SEEN, Urine WBC 10-25 SEEN 12/30/19 06:36: Lactic Acid 0.7 12/30/19 07:49: Troponin I 0.180 H Rhythm: EKG: Normal sinus rhythm with T wave inversion noted in lead V3 ECHO: LV dysfunction with probable apical thrombus Stress Test: Cardiac Cath: PCI: CT Surgery: Holter monitor: EPS: PPM: CXR: Chest CT Scan: Assessment/Plan 1. Left ventricular systolic dysfunction * Patient presents with shortness of breath and mildly abnormal cardiac enzymes and is noted to have significant left ventricular systolic dysfunction. The above is likely secondary to a combination of coronary artery disease and or previous chemotherapy. The exact chemotherapy regimen is not unknown at this particular time. * Would recommend starting beta-calixto * Exclude coronary disease with left heart catheterization without LV * Add LUIS M inhibitor * Depending on the findings further recommendations will be made * 2. Abnormal cardiac enzymes * The above could likely be secondary to primary or secondary coronary ischemia. * This will be further elucidated after the heart catheterization. * 3. Hypertension * Continue LUIS M inhibitor and diuretic. * * Thank you for allowing me to participate in the care of your patient. Please don't hesitate to call if any issues arise.
[2019-12-30] MEDS: Aspirin E.C. 81 MG Tablet PO (12:13)
[2019-12-30] MEDS: Clopidogrel Bisulfate 300 MG Tablet PO (12:14)
--- NOTE | 2019-12-30 16:09 | PN_ITS ---
Patient Problems: Active and Suspected Problems (Last Updated 12/30/19 @ 03:[address] Reg Luevano MD) Sepsis (Acute) UTI (urinary tract infection) (Acute) Abnormal EKG (Acute) Elevated troponin (Acute) Reason for Visit: sepsis Subjective: feels well. anxious to get home. Vitals/I&O's: Vital Signs Temp Pulse Resp BP Pulse Ox 36.7 C 70 16 120/80 99 12/30/19 12:10 12/30/19 15:12 12/30/19 12:10 12/30/19 12:10 12/30/19 12:10 Oxygen Flow Rate (L/min) 2 Oxygen Delivery Method Nasal Cannula Weight: 84.7 kg Body Mass Index (BMI) 30.1 Intake and Output for Last 24 Hours 12/28/19 12/29/19 12/30/19 23:59 23:59 23:59 Intake Total 290 / 290 Balance 290 / 290 General: Alert, No apparent distress HEENT: Atraumatic, Normocephalic Oral: Moist Mucosa, No Gingival or Mucosal Lesions/ Ulcerations Neck: No Nodes, Trachea Midline Lungs: Clear to auscultation, Normal air movement, No rhonchi, No wheeze, No rales Cardiovascular: Regular rate, Regular Rhythm, Normal S1, Normal S2, No murmurs Abdomen: Bowel Sounds Present, Soft, Non Tender, Non-Distended, No Hepato- splenomegaly Extremities: No edema, No Calf Tenderness Skin: No rashes, No breakdown Psych/Mental Status: Normal Affect, Appropriate Microbiology Past 72 Hours 12/30/19 03:00 Mucosa - Nasopharyngeal Coronavirus COVID-19 PCR - Final Laboratory Results 12/30/19 00:29: WBC 12.4 H, RBC 4.11 L, Hgb 12.4, Hct 40.0, MCV 97.3, MCH 30.2, MCHC 31.0 L, RDW Std Deviation 48.4 H, RDW Coeff of Michael 13.7, Plt Count 249, MPV 10.9, Immature Gran % (Auto) 0.400, Neut % (Auto) 82.0 H, Lymph % (Auto) 9.9 L, [place] % (Auto) 6.1, Eos % (Auto) 1.3, Baso % (Auto) 0.3, Absolute Neuts (auto) 10.1 H, Absolute Lymphs (auto) 1.22, Nucleated RBC % 0 12/30/19 00:29: Sodium 139, Potassium 4.6, Chloride 107, Carbon Dioxide 27.0, Anion Gap 5, BUN 17, Creatinine 0.96, Estim Creat Clear Calc 39.25, Est GFR (MDRD) Af Amer 71, Est GFR (MDRD) Non-Af 59 L, BUN/Creatinine Ratio 17.7, Glucose 139 H, Calcium 9.0, Troponin I 0.210 H 12/30/19 02:05: Urine Color Yellow, Urine Clarity Clear, Urine pH 5.0, Ur Specific [place] 1.025, Urine Protein Negative, Urine Glucose (UA) Normal, Urine Ketones Negative, Urine Occult Blood Negative, Urine Nitrite Negative, Urine Bilirubin Negative, Urine Urobilinogen Normal, Ur Leukocyte Esterase 100 H, Urine RBC 0 SEEN, Urine WBC 10-25 SEEN, Ur Squamous Epith Cells 0 SEEN, Urine Bacteria 0 SEEN, Urine Mucus 0 SEEN 12/30/19 03:00: COVID-19 (MARYLOU) Cancelled 12/30/19 06:36: Lactic Acid 0.7 12/30/19 07:49: Troponin I 0.180 H 12/30/19 10:16: Troponin I 0.141 H 12/30/19 13:00: Troponin I 0.118 H Current Medications Acetaminophen (Tylenol) 650 mg PO Q6H PRN PRN PRN Reason: Pain Score 1-10/Temp > 100.7 F Aspirin (Ecotrin) 81 mg PO DAILY@0800 [facility] Atorvastatin Calcium (Lipitor) 40 mg PO QHS [facility] Carvedilol (Coreg) 3.125 mg PO BID [facility] Clopidogrel Bisulfate (Plavix) 75 mg PO DAILY [facility] Dextrose (D50w Syringe) 0 gm IV X1 PRN; Protocol PRN Reason: Hypoglycemia Donepezil HCl (Aricept) 10 mg PO DAILY [facility] Last Admin: 12/30/19 08:19 Dose: 10 mg Documented by: Enoxaparin Sodium (Lovenox) 90 mg SC Q12@0600,1800 [facility] Glucagon () 1 mg IM .X1 PRN PRN Reason: Hypoglycemia Hydrochlorothiazide () 12.5 mg PO DAILY [facility] Last Admin: 12/30/19 08:19 Dose: 12.5 mg Documented by: Ceftriaxone Sodium (Rocephin) 1 gm in 50 mls @ 100 mls/hr IV Q24 [facility] Last Infusion: 12/30/19 09:14 Dose: Infused Documented by: Sodium Chloride () 250 mls @ 15 mls/hr IV .[id number] PRN PRN Reason: Saline Flush Sodium Chloride () 250 mls @ 15 mls/hr IV .[id number] PRN PRN Reason: Additional IVPB Infusion Sodium Chloride () 1,000 mls @ 0 mls/hr IV .Q0M [facility] Lisinopril (Zestril) 20 mg PO DAILY [facility] Last Admin: 12/30/19 08:19 Dose: 20 mg Documented by: Memantine (Namenda) 10 mg PO BID [facility] Last Admin: 12/30/19 08:19 Dose: 10 mg Documented by: Sertraline HCl (Zoloft) 50 mg PO DAILY [facility] Last Admin: 12/30/19 08:19 Dose: 50 mg Documented by: Sodium Chloride () 10 - 40 ml IV UD PRN PRN Reason: SALINE FLUSH Timolol Maleate (Timoptic) 1 drop EACH EYE BID [facility] Last Admin: 12/30/19 08:21 Dose: 1 drop Documented by: STROKE Vital Signs/Narrative: Vital Signs Temp Pulse Resp BP Pulse Ox 12/30/19 15:12 70 12/30/19 12:57 74 12/30/19 12:10 36.7 C 76 16 120/80 99 Medical Necessity - Tobacco Use Smoking Status: Former smoker Assessment/Plan All Active Problems (Last Updated 12/30/19 @ 03:[address] Reg Luevano MD) Sepsis (Acute) UTI (urinary tract infection) (Acute) Abnormal EKG (Acute) Elevated troponin (Acute) 1. sepsis: clinically improved 2. possible UTI * on CTX * follow up cultures 3. cardiomyopathy * EF 35% * LV thrombus * LHC * carvedilol, lisinopril 4. LV thrombus * enoxaparin 5. VTE prophylaxis: LMWH Inpatient E&M: 52010 [facility] Hosp L2
[2019-12-30] MEDS: Enoxaparin 100 MG/ML Syringe 90 MG SC (17:17)
[2019-12-30] MEDS: Carvedilol 3.125 MG TABLET PO (22:48)
[2019-12-30] MEDS: Atorvastatin Calcium 40 MG Tablet PO (22:48)
[2019-12-31] VITALS (18 sets, daily range): BP systolic 95–131; BP diastolic 38–95; PULSE 62–79; RESP 14–18; TEMP 36.6–36.8; O2SAT 90–98
--- NOTE | 2019-12-31 05:55 | EKG12_ITS ---
Test Reason : AM EKG Blood Pressure : / mmHG Vent. Rate : 069 BPM Atrial Rate : 069 BPM P-R Int : 176 ms QRS Dur : 114 ms QT Int : 476 ms P-R-T Axes : 001 064 181 degrees QTc Int : 510 ms Normal sinus rhythm with sinus arrhythmia Incomplete left bundle branch block T wave abnormality, consider anterolateral ischemia Prolonged QT Abnormal ECG Confirmed by FLOYD COSTELOL, MARCO ([id number]), supervising editor news reel LAINEY GALLOWAY ([id number]) on 01/02/2020 2:50:40 PM Referred By: ZORAN Confirmed By:MARCO BARRIENTOS MD
[2019-12-31 06:10] LABS: Absolute Lymphocyte Count 1.82 X10^3/uL (0.83-4.51); Absolute Neutrophil Count 4.5 X10^3/uL (2.0-7.7); Basophil# 0.03 X10^3/uL; Basophil% 0.4 % (0-1); Eosinophil# 0.41 X10^3/uL; Eosinophils% 5.5 % (0-5); Hemoglobin 12.3 g/dL (12.0-15.0); Lymphocyte # 1.82 X10^3/ul (4.0); Lymphocyte % 24.3 % (19-41); Mean Corp Hgb Conc 32.4 g/dL (32-36); Mean Corpuscular Hgb 30.7 pg (27.0-32.0); Mean Corpuscular Volume 94.8 fL (81-99); Mean Platelet Vol. 10.8 fl (6.2-12.0); Monocyte# 0.67 X10^3/uL; NRBC Flagged by Analyzer 0 % (0-5); Neutrophil # 4.53 X10^3/uL (2.7-7.7); Neutrophil % 60.5 % (47-70); Platelet Count 231 K/mm3 (150-450); RBC Distribution Width CV 13.7 % (11.6-14.6); RBC Distribution Width SD 47.3 fl (35.1-43.9); Red Blood Count 4.01 M/mm3 (4.2-5.4); White Blood Count 7.5 K/mm3 (4.4-11.0)
[2019-12-31] MEDS: Aspirin E.C. 81 MG Tablet PO (06:15)
[2019-12-31] MEDS: Clopidogrel Bisulfate 75 MG Tablet PO (06:15)
[2019-12-31] MEDS: 0.9% Saline Lock 10 ML Syringe IV (06:15)
[2019-12-31] MEDS: Carvedilol 3.125 MG TABLET PO (06:16)
[2019-12-31 06:35] LABS: Anion Gap 5 (5-15); BUN 14 mg/dL (7-18); BUN/Creat Ratio 16.1 RATIO (10-20); Calcium,Total 8.6 mg/dL (8.5-10.1); Chloride 107 mmol/L (98-107); Creatinine, Serum 0.87 mg/dL (0.55-1.02); EST Glomerular Filtration Rate 66 mL/min (>60); Est Glom Filt Rate - Afr Amer 80 mL/min (>60); Estimated Creatinine Clearance 45.06 ml/min; Glucose 91 mg/dL (74-106); Potassium 3.3 mmol/L (3.5-5.1); Sodium Level 140 mmol/L (136-145)
[2019-12-31] MEDS: Ceftriaxone 1 GM/50 ML BAG IV (08:19)
[2019-12-31] MEDS: Memantine Hydrochloride 10 MG Tablet PO (08:21)
[2019-12-31] MEDS: Timolol 0.5% 5ML OPTH.BTL 1 DRP EACH EYE (08:21)
[2019-12-31] MEDS: Donepezil HCl 10 MG Tablet PO (08:21)
[2019-12-31] MEDS: Sertraline 50 MG Tablet PO (08:22)
--- NOTE | 2019-12-31 08:27 | CASEMGMT ---
According to the [facility] website, the following are in-network tertiary facilities: [facility], [facility], [facility], [facility], and . Keanu CORBIN CM
--- NOTE | 2019-12-31 09:15 | CL.D_ITS ---
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 Cardiomyopathy: Dilated RECOMMENDATIONS Medical therapy DESCRIPTION OF PROCEDURE The patient arrived to the procedure lab. The risks and benefits of the procedure as well as a full d escription of our services here and current unavailability of surgical backup were fully explained to the patient and/or their significant other prior to the catheterization. The Timeout was completed, verifying the correct patient and procedure. The patient's procedural site was prepped and draped in the usual fashion. Local anesthetic was given subcutaneously to right radial region with Lidocaine 2% . Using a modified Seldinger technique, arterial access was obtained via the right radial artery, a 6 Fr sheath was inserted. Right Coronary Artery selective angiography was then performed in multiple v iews using a 5 Fr. 4.0 [place] catheter. Left Coronary Artery selective angiography was performed in mu ltiple views using a 5 Fr. 4.0 [place] catheter.The arterial sheath was pulled and a TR Band was applie d for hemostasis-11 cc air CORONARY ANGIOGRAPHY DOMINANCE: Right Dominant LEFT HEART ASSESSMENT Left Ventricular Ejection Fraction: by Echo 35 % Anterior Hypokinesis - Severe Depressed Left Ventricular systolic function LEFT MAIN: Angiographically normal LEFT ANTERIOR DESCENDING ARTERY: Mild luminal irregularities DIAGONAL 1: Proximal - side branch total occlusion CIRCUMFLEX ARTERY: Mild luminal irregularities RAMUS: Mild luminal irregularities RIGHT CORONARY ARTERY: Mild luminal irregularities COMPLICATIONS No Complications PROCEDURE MEDICATIONS Fentanyl 50 mcg IV Versed 1 mg IV Oxygen: 2 L/min via nasal cannula Heparin diluted in 23cc Heparinized saline. Patient given 10cc IA of this solution. 12/31/2019 08:53: 52 Verapamil 2.5mg, Ntg 100mcgs, 2000 units of Heparin diluted in 23cc Heparinized saline. Patient give n 10cc IA of this solution. 12/31/2019 08:53:52 SUMMARY OF HEMODYNAMIC DATA Time AIR REST ECG 08:45:47 AO 134/79 (102) SA 08:54:43 Signed By Nic Bro MD On 12/31/2019 9:14:40 AM Nic Bro MD
--- NOTE | 2019-12-31 09:19 | PN.CARD_ITS ---
Subjectve: Patient seen and evaluated. Appears to be doing well. Underwent cardiac catheterization today. Objective: Vital Signs Temp Pulse Resp BP Pulse Ox 97.8 F 73 16 113/95 H 95 12/31/19 06:13 12/31/19 06:49 12/31/19 06:13 12/31/19 06:13 12/31/19 07:05 Oxygen Flow Rate (L/min) 2 Oxygen Delivery Method Nasal Cannula Weight: 186 lb 11.704 oz Body Mass Index (BMI) 30.1 Intake and Output for Last 24 Hours 12/29/19 12/30/19 12/31/19 23:59 23:59 23:59 Intake Total 530 / 530 Balance 530 / 530 General: Awake, Alert, Oriented x 3 HEENT: PERRL, EOMI, Sclera Non Icteric Neck: Supple, Good ROM, No Lymph Node Enlargement Lungs: Clear to auscultation Cardiovascular: Regular Rhythm, Normal S1, Normal S2, No Murmurs, No Rubs, No Gallops Vascular: No Carotid Bruits, Normal Femoral Pulses, Normal Radial Pulses, Normal Dorsalis Pedal Pulse, Normal Posterior Tibial Pulses Abdomen: Bowel Sounds Present, Soft, Non Tender, No HSM, No Organomegaly Extremities: No Cyanosis, No Clubbing, No edema Musculoskeletal: No Erythema Skin: No Rashes Neurological: No Focal Motor or Sensory Deficit Psych/Mental Status: Appropriate 12/30/19 10:16: Troponin I 0.141 H 12/30/19 13:00: Troponin I 0.118 H 12/31/19 06:00: WBC 7.5, RBC 4.01 L, Hgb 12.3, Hct 38.0, MCV 94.8, MCH 30.7, MCHC 32.4, Plt Count 231, MPV 10.8, Immature Gran % (Auto) 0.300, Neut % (Auto) 60.5, Lymph % (Auto) 24.3, [place] % (Auto) 9.0, Eos % (Auto) 5.5 H, Baso % (Auto) 0.4, Absolute Neuts (auto) 4.5, Nucleated RBC % 0 12/31/19 06:00: Sodium 140, Potassium 3.3 L, Chloride 107, Carbon Dioxide 28.0, Anion Gap 5, BUN 14, Creatinine 0.87, Est GFR (MDRD) Af Amer 80, Est GFR (MDRD) Non-Af 66, BUN/Creatinine Ratio 16.1, Glucose 91, Calcium 8.6 Rhythm: EKG: ECHO: Stress Test: Cardiac Cath: PCI: CT Surgery: Holter monitor: EPS: PPM: CXR: Chest CT Scan: Medical Necessity - Tobacco Use Smoking Status: Former smoker Assessment/Plan 1. Left ventricular systolic dysfunction * Patient presents with shortness of breath and mildly abnormal cardiac enzymes and is noted to have significant left ventricular systolic dysfunction. The above is likely secondary to a combination of coronary artery disease and or previous chemotherapy. The exact chemotherapy regimen is not unknown at this particular time. * Cardiac catheterization demonstrated the following: Normal left main coronary artery Ramus intermedius which is normal. Left circumflex artery with no significant disease. Right coronary artery which is dominant with no significant disease. Left anterior descending artery with no significant stenosis. First diagonal vessel with a side branch which is totally occluded. Based on the above angiographic findings would recommend medical therapy. * Due to the presence of the left ventricular thrombus I would recommend anticoagulation with Eliquis. Starting this evening. 2. Hypertension * Continue LUIS M inhibitor and diuretic. * * Thank you for allowing me to participate in the care of your patient. Please don't hesitate to call if any issues arise. Above discussed with patient's daughter.
[2019-12-31] MEDS: hydroCHLOROthiazide 12.5mg 12.5 MG PO (10:37)
[2019-12-31] MEDS: Lisinopril 20 MG Tablet PO (10:37)
--- NOTE | 2019-12-31 11:17 | CASEMGMT ---
SHAQUILLE OSWALD assessment: Phone call with patient's daughter, Jane Jim, for initial transition planning/care coordination assessment as pt has dementia and is unable to answer at this time. SHAQUILLE OSWALD introduced self and role at [facility], pt's daughter voices understanding and consents to assessment at this time. Pt's daughter is a [facility] nurse and answers all questions appropriately at this time. Care providers, pharmacy, and demographics verified/updated at this time. Presentation: Increased SOB and anxiety Admitting dx: Sepsis from UTI PCP: [facility] Specialists: Pt has no current specialists at this time. Preferred Pharmacy: [facility] Insurance: A[employer]R Prescription Benefit: A[employer] Living Will/HPOA: Per daughter, pt has LW/HPOA and is aware that they are not on file at [facility] at this time. Daughter, Jane Jim, states that she is HPOA. LNOK: Jane Jim, daughter/HPOA; Sneha Calle, daughter Living Arrangements: Pt live with daughter, Sneha Calle, and her in 2 story and pt has no concerns at home. Pt is independent with ADL's. Transportation: Pt's family drives and states no transportation concerns at this time. DME/HHC: Per daughter, pt has no current DME or need for any at this time. Pt has no hx of HHC or SNF in the past. Per daughter, no concerns with taking pt home at discharge. Pt is retired. Pt does not smoke or drink ETOH. Daughter states no further concerns/needs at this time. CM to follow for Eliquis co-pay and for any further discharge planning/needs. Advised daughter to ask for CM if any further questions/concerns/needs arise, voices understanding. Pt Goal: Home w/ family Plan: Home w/ family [place] SHAQUILLE OSWALD
--- NOTE | 2019-12-31 11:23 | CASEMGMT ---
This RN CM to room to complete CM assessment and pt is only A/O to person/place at this time. Pt is unable to answer any questions for this RN CM at this time. Pt states ok to call daughter and this RN CM left daughter a message to call this RN CM back when able. [place] RN CM
--- NOTE | 2019-12-31 13:57 | DCINST_ITS ---
- Discharge Diagnoses Current Active Problems: Current Active and Chronic Problems (Last Updated 12/30/19 @ 03:[address] Reg Luevano MD) LV thrombus Cardiomyopathy UTI ruled out You will use the following diet at home:: Cardiac Discharge Activity: Return to Normal Activity Call your doctor if you observe: Shortness of breath, Dizziness, Fainting spells, Chest pain Allergies/Adverse Reactions: Allergies No Known Allergies Allergy (Verified 12/29/19 22:51) Medications to take at Discharge Ascorbic Acid [Vitamin C] 1,000 mg PO DAILY 12/30/19 Calcium Carbonate/Vitamin D3 [Calcium 600 + Vit D Tablet] 600 mg PO DAILY 12/30/19 Cholecalciferol (VIT D3) [Vitamin D3] 1,000 unit PO DAILY 12/30/19 Donepezil HCl [Aricept] 10 mg PO DAILY 12/30/19 Lisinopril/Hydrochlorothiazide [Lisinopril-Hctz 20-12.5 mg Tab] 1 ea PO DAILY 12/30/19 Memantine HCl 10 mg PO BID 12/30/19 Sertraline HCl 50 mg PO DAILY 12/30/19 Timolol 0.5% [Timoptic] 1 drp EACH EYE BID 12/30/19 Apixaban [Eliquis] 5 mg PO BID #60 tab 12/31/19 Aspirin E.C. [Ecotrin] 81 mg PO DAILY@0800 #30 tab 12/31/19 Carvedilol [Coreg (Beta Vickie)] 3.125 mg PO BID #60 tab 12/31/19 The following prescriptions were given: Carvedilol [Coreg (Beta Vickie)] 3.125 mg PO BID #60 tab Transmission Status: Pending to [facility] Aspirin E.C. [Ecotrin] 81 mg PO DAILY@0800 #30 tab Transmission Status: Pending to [facility] Apixaban [Eliquis] 5 mg PO BID #60 tab Transmission Status: Pending to [facility] Primary Care Physician: Jayesh Chavez Chi, MD [Primary Care Provider] - Please follow up with your Primary Care Physician in: 1 Week Test Results: Test results from this visit will be discussed in further detail at your follow- up appointment, if applicable. Please Follow Up With: Nic Bro MD When: 1-2 Weeks, may see CLEANING SPECIALIST/PA Proposed Discharge Date: 12/31/19
--- NOTE | 2019-12-31 14:01 | PCM.DC.SUM ---
<Grisel Barrett - Last Filed: 12/31/19 14:12> Discharge Date and Diagnosis Date of Admission: 12/30/19 Date of Discharge: 12/31/19 - Primary Discharge Diagnosis Acute Problems: Active Problems (Last Updated 12/30/19 @ 03:[address] Reg Luveano MD) 1. SIRS 2/4 criteria, no evidence of infection 2. LV Thrombus 3. Cardiomyopathy/left ventricular systolic dysfunction 4. Hypertension 5. History of breast cancer-in remission. 6. Dementia Hospital Course and Treatment Imaging Results: Diagnostic Data Chest X-Ray 12/29/19 23:12 IMPRESSION: There are mild fibrotic lung changes. The lungs are well-expanded. There is no demonstrated pleural abnormality. The heart is mildly enlarged. Electronically Signed: Nathen Maddox MD at 1:51 EDT , Service support , Dr. ortiz- cardiology Operations: None Procedures: 2-D Echocardiogram, Cardiac catheterization Summary of Care Provided: The patient is a 84 year old F admitted 12/30/2019 due to shortness of breath. 1. SIRS 2/4 criteria, no evidence of infection-patient with mild leukocytosis 12.4 and tachypnea on admission. Lactic acid normal. Afebrile. Chest x-ray demonstrated no acute process. UA initially suspected however urine culture grew low colony count mixed gram-positive organisms. Patient denies urinary symptoms. Blood culture shows no growth thus far. COVID-19 negative. Infectious process ruled out. Further antibiotics discontinued. Leukocytosis and tachypnea resolved. 2. LV Thrombus-as noted on echocardiogram. Initiated on Eliquis 5 mg twice daily. Outpatient follow-up with cardiology. 3. Cardiomyopathy/left ventricular systolic dysfunction-echocardiogram demonstrated an EF of 35%, stage II diastolic dysfunction, layered thrombus in LV apex, mild tricuspid valve insufficiency. Cardiac catheterization demonstrated single-vessel medical disease involving the side branch of a diagonal vessel. Dilated cardiomyopathy. Continue medical therapy including carvedilol, lisinopril/HCTZ. 4. Hypertension-stable, continue carvedilol, OSWALDO inhibitor and HCTZ. 5. History of breast cancer-in remission. 6. Dementia-lives with daughter. Continue Aricept, memantine. Patient seen and examined prior to discharge. Physical assessment as noted below. Patient is stable for discharge with follow up recommendations as noted above. This patient was seen by YESSY Platt under the supervision of Dr. Welch. - Physical Exam Vitals/I&O's: Vital Signs Temp Pulse Resp BP Pulse Ox 98.3 F 79 18 108/55 L 94 12/31/19 13:28 12/31/19 13:28 12/31/19 13:28 12/31/19 13:28 12/31/19 13:29 Oxygen Flow Rate (L/min) 2 Oxygen Delivery Method Room Air Weight: 186 lb 11.704 oz Body Mass Index (BMI) 30.1 Intake and Output for Last 24 Hours 12/29/19 12/30/19 12/31/19 23:59 23:59 23:59 Intake Total 530 / 530 410 / 410 Balance 530 / 530 410 / 410 General: Alert, Cooperative, No apparent distress HEENT: Atraumatic, PERRLA, EOMI, Normocephalic Neck: Supple, No JVD, Negative Carotid Bruits Lungs: Clear to auscultation, Normal air movement Cardiovascular: Regular rate, Regular Rhythm, Normal S1, Normal S2, No murmurs Abdomen: Bowel Sounds Present, Soft, Non Tender, Non-Distended Extremities: No clubbing, No cyanosis, No edema, Capillary Refill Less than 3 Seconds Skin: No rashes, No breakdown Musculoskeletal: No Tenderness to Palpation of Joints or Extremities Neurological: Cranial nerves II-XII grossly intact, Neuro grossly intact Psych/Mental Status: Normal Affect, Appropriate Microbiology Past 72 Hours 12/30/19 02:05 Urine, Clean Catch Urine Culture - Final Mixed Gram Positive Organisms 12/30/19 03:00 Mucosa - Nasopharyngeal Coronavirus COVID-19 PCR - Final Laboratory Results 12/31/19 06:00: WBC 7.5, RBC 4.01 L, Hgb 12.3, Hct 38.0, MCV 94.8, MCH 30.7, MCHC 32.4, RDW Std Deviation 47.3 H, RDW Coeff of Michael 13.7, Plt Count 231, MPV 10.8, Immature Gran % (Auto) 0.300, Neut % (Auto) 60.5, Lymph % (Auto) 24.3, Tarrant % (Auto) 9.0, Eos % (Auto) 5.5 H, Baso % (Auto) 0.4, Absolute Neuts (auto) 4.5, Absolute Lymphs (auto) 1.82, Nucleated RBC % 0 12/31/19 06:00: Sodium 140, Potassium 3.3 L, Chloride 107, Carbon Dioxide 28.0, Anion Gap 5, BUN 14, Creatinine 0.87, Estim Creat Clear Calc 45.06, Est GFR (MDRD) Af Amer 80, Est GFR (MDRD) Non-Af 66, BUN/Creatinine Ratio 16.1, Glucose 91, Calcium 8.6 Current Medications Acetaminophen (Tylenol) 650 mg PO Q6H PRN PRN PRN Reason: Pain Score 1-10/Temp > 100.7 F Apixaban (Eliquis) 5 mg PO BID [facility] Aspirin (Ecotrin) 81 mg PO DAILY@0800 [facility] Last Admin: 12/31/19 06:15 Dose: 81 mg Documented by: Atorvastatin Calcium (Lipitor) 40 mg PO QHS [facility] Last Admin: 12/30/19 22:48 Dose: 40 mg Documented by: Carvedilol (Coreg) 3.125 mg PO BID [facility] Last Admin: 12/31/19 06:16 Dose: 3.125 mg Documented by: Dextrose (D50w Syringe) 0 gm IV X1 PRN; Protocol PRN Reason: Hypoglycemia Donepezil HCl (Aricept) 10 mg PO DAILY [facility] Last Admin: 12/31/19 08:21 Dose: 10 mg Documented by: Glucagon () 1 mg IM .X1 PRN PRN Reason: Hypoglycemia Hydrochlorothiazide () 12.5 mg PO DAILY [facility] Last Admin: 12/31/19 10:37 Dose: 12.5 mg Documented by: Ceftriaxone Sodium (Rocephin) 1 gm in 50 mls @ 100 mls/hr IV Q24 [facility] Last Infusion: 12/31/19 09:25 Dose: Infused Documented by: Sodium Chloride () 250 mls @ 15 mls/hr IV .[id number] PRN PRN Reason: Saline Flush Sodium Chloride () 250 mls @ 15 mls/hr IV .[id number] PRN PRN Reason: Additional IVPB Infusion Sodium Chloride () 1,000 mls @ 0 mls/hr IV .Q0M [facility] Lisinopril (Zestril) 20 mg PO DAILY [facility] Last Admin: 12/31/19 10:37 Dose: 20 mg Documented by: Memantine (Namenda) 10 mg PO BID [facility] Last Admin: 12/31/19 08:21 Dose: 10 mg Documented by: Sertraline HCl (Zoloft) 50 mg PO DAILY [facility] Last Admin: 12/31/19 08:22 Dose: 50 mg Documented by: Sodium Chloride () 10 - 40 ml IV UD PRN PRN Reason: SALINE FLUSH Last Admin: 12/31/19 06:15 Dose: 20 ml Documented by: Timolol Maleate (Timoptic) 1 drop EACH EYE BID [facility] Last Admin: 12/31/19 08:21 Dose: 1 drop Documented by: Discharge Diet: Low fat/ Low Cholesterol, 8 Cup Fluid Restriciton, 2000 mg Sodium Diet Discharge Activity: Return to Normal Activity Call your doctor if you observe: Shortness of breath, Dizziness, Fainting spells, Chest pain Home Medications: Medications to take at Discharge Ascorbic Acid [Vitamin C] 1,000 mg PO DAILY 12/30/19 Calcium Carbonate/Vitamin D3 [Calcium 600 + Vit D Tablet] 600 mg PO DAILY 12/30/19 Cholecalciferol (VIT D3) [Vitamin D3] 1,000 unit PO DAILY 12/30/19 Donepezil HCl [Aricept] 10 mg PO DAILY 12/30/19 Lisinopril/Hydrochlorothiazide [Lisinopril-Hctz 20-12.5 mg Tab] 1 ea PO DAILY 12/30/19 Memantine HCl 10 mg PO BID 12/30/19 Sertraline HCl 50 mg PO DAILY 12/30/19 Timolol 0.5% [Timoptic] 1 drp EACH EYE BID 12/30/19 Apixaban [Eliquis] 5 mg PO BID #60 tab 12/31/19 Aspirin E.C. [Ecotrin] 81 mg PO DAILY@0800 #30 tab 12/31/19 Carvedilol [Coreg (Beta Vickie)] 3.125 mg PO BID #60 tab 12/31/19 Following Prescrptions Were Given to Patient: Carvedilol [Coreg (Beta Vickie)] 3.125 mg PO BID #60 tab Transmission Status: Received by [facility] Aspirin E.C. [Ecotrin] 81 mg PO DAILY@0800 #30 tab Transmission Status: Received by [facility] Apixaban [Eliquis] 5 mg PO BID #60 tab Transmission Status: Received by 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 Disposition: Home Minutes spent on discharge:: 35 Patient Condition:: Stable Medical Necessity - Tobacco Use Smoking Status: Former smoker Meaningful Use Info Meaningful Use Diagnoses (Choose all that apply): AMI - AMI/Post PCI/Angioplasty Aspirin given w/in 24hrs of arrival?: Yes ASA at discharge?: Yes Statins at discharge?: No Reason statins not ordered:: Allergy Oswaldo/ARB at discharge?: Yes Beta Vickie at discharge?: Yes Done w/ Acute [place] measure.: Yes Documented LVEF (%): 35 <Curtis Welch - Last Filed: 12/31/19 14:37> Hospital Course and Treatment Operations: None Procedures: 2-D Echocardiogram, Cardiac catheterization Summary of Care Provided: Patient seen and examined independently. Data reviewed. I agree with the above note by the nurse practitioner. The patient is a 84 year old F presents with shortness of breath. 1. SIRS: clinically improved. infectious work up unremarkable 2. possible UTI on CTX follow up cultures 3. cardiomyopathy EF 35% LV thrombus LHC carvedilol, lisinopril 4. LV thrombus apixaban [] - Physical Exam Vitals/I&O's: Vital Signs Temp Pulse Resp BP Pulse Ox 36.8 C 79 18 108/55 L 94 12/31/19 13:28 12/31/19 13:28 12/31/19 13:28 12/31/19 13:28 12/31/19 13:29 Oxygen Flow Rate (L/min) 2 Oxygen Delivery Method Room Air Weight: 84.7 kg Body Mass Index (BMI) 30.1 Intake and Output for Last 24 Hours 12/29/19 12/30/19 12/31/19 23:59 23:59 23:59 Intake Total 530 / 530 410 / 410 Balance 530 / 530 410 / 410 General: Alert, Cooperative, No apparent distress HEENT: Atraumatic, Normocephalic Lungs: Clear to auscultation, Normal air movement Cardiovascular: Regular rate, Regular Rhythm, Normal S1, Normal S2 Abdomen: Bowel Sounds Present, Soft, Non Tender, Non-Distended Extremities: No edema, No Calf Tenderness Skin: No rashes, No breakdown Psych/Mental Status: Normal Affect, Appropriate Microbiology Past 72 Hours 12/30/19 02:05 Urine, Clean Catch Urine Culture - Final Mixed Gram Positive Organisms 12/30/19 03:00 Mucosa - Nasopharyngeal Coronavirus COVID-19 PCR - Final Laboratory Results 12/31/19 06:00: WBC 7.5, RBC 4.01 L, Hgb 12.3, Hct 38.0, MCV 94.8, MCH 30.7, MCHC 32.4, RDW Std Deviation 47.3 H, RDW Coeff of Michael 13.7, Plt Count 231, MPV 10.8, Immature Gran % (Auto) 0.300, Neut % (Auto) 60.5, Lymph % (Auto) 24.3, Tarrant % (Auto) 9.0, Eos % (Auto) 5.5 H, Baso % (Auto) 0.4, Absolute Neuts (auto) 4.5, Absolute Lymphs (auto) 1.82, Nucleated RBC % 0 12/31/19 06:00: Sodium 140, Potassium 3.3 L, Chloride 107, Carbon Dioxide 28.0, Anion Gap 5, BUN 14, Creatinine 0.87, Estim Creat Clear Calc 45.06, Est GFR (MDRD) Af Amer 80, Est GFR (MDRD) Non-Af 66, BUN/Creatinine Ratio 16.1, Glucose 91, Calcium 8.6 Current Medications Acetaminophen (Tylenol) 650 mg PO Q6H PRN PRN PRN Reason: Pain Score 1-10/Temp > 100.7 F Apixaban (Eliquis) 5 mg PO BID [facility] Aspirin (Ecotrin) 81 mg PO DAILY@0800 [facility] Last Admin: 12/31/19 06:15 Dose: 81 mg Documented by: Atorvastatin Calcium (Lipitor) 40 mg PO QHS [facility] Last Admin: 12/30/19 22:48 Dose: 40 mg Documented by: Carvedilol (Coreg) 3.125 mg PO BID [facility] Last Admin: 12/31/19 06:16 Dose: 3.125 mg Documented by: Dextrose (D50w Syringe) 0 gm IV X1 PRN; Protocol PRN Reason: Hypoglycemia Donepezil HCl (Aricept) 10 mg PO DAILY [facility] Last Admin: 12/31/19 08:21 Dose: 10 mg Documented by: Glucagon () 1 mg IM .X1 PRN PRN Reason: Hypoglycemia Hydrochlorothiazide () 12.5 mg PO DAILY [facility] Last Admin: 12/31/19 10:37 Dose: 12.5 mg Documented by: Ceftriaxone Sodium (Rocephin) 1 gm in 50 mls @ 100 mls/hr IV Q24 [facility] Last Infusion: 12/31/19 09:25 Dose: Infused Documented by: Sodium Chloride () 250 mls @ 15 mls/hr IV .[id number] PRN PRN Reason: Saline Flush Sodium Chloride () 250 mls @ 15 mls/hr IV .[id number] PRN PRN Reason: Additional IVPB Infusion Sodium Chloride () 1,000 mls @ 0 mls/hr IV .Q0M [facility] Lisinopril (Zestril) 20 mg PO DAILY [facility] Last Admin: 12/31/19 10:37 Dose: 20 mg Documented by: Memantine (Namenda) 10 mg PO BID [facility] Last Admin: 12/31/19 08:21 Dose: 10 mg Documented by: Sertraline HCl (Zoloft) 50 mg PO DAILY [facility] Last Admin: 12/31/19 08:22 Dose: 50 mg Documented by: Sodium Chloride () 10 - 40 ml IV UD PRN PRN Reason: SALINE FLUSH Last Admin: 12/31/19 06:15 Dose: 20 ml Documented by: Timolol Maleate (Timoptic) 1 drop EACH EYE BID [facility] Last Admin: 12/31/19 08:21 Dose: 1 drop Documented by: Discharge Diet: Low fat/ Low Cholesterol, 8 Cup Fluid Restriciton, 2000 mg Sodium Diet Discharge Activity: Return to Normal Activity Call your doctor if you observe: Shortness of breath, Fainting spells Disposition: Home Minutes spent on discharge:: 35 Patient Condition:: Stable Medical Necessity - Tobacco Use Smoking Status: Former smoker Meaningful Use Info Meaningful Use Diagnoses (Choose all that apply): AMI - AMI/Post PCI/Angioplasty Aspirin given w/in 24hrs of arrival?: Yes ASA at discharge?: Yes Statins at discharge?: No Reason statins not ordered:: Allergy Oswaldo/ARB at discharge?: Yes Beta Vickie at discharge?: Yes Done w/ Acute [place] measure.: Yes Documented LVEF (%): 35 Inpatient E&M: [id number] Disch Hosp
--- NOTE | 2019-12-31 14:36 | CASEMGMT ---
Pt to be sent home on Eliquis at discharge and med e-scribed to [facility] pharmacy previously. Per Stef in pharmacy, pt's co-pay will be about $80/month but 30 day free trial card applied at this time. Keanu CORBIN CM
== END 2019-12-31 15:05 | disposition home or self-care (01) | DRG 872 ==
LOC: ED 23:46 → PCU 12-30 03:48
PROVIDERS: Admitting Provider Hospitalist; Emergency Provider Emergency Medicine; PCP Family Medicine Geriatric Medicine
DX: A41.9 Sepsis, unspecified organism (principal); I42.0 Dilated cardiomyopathy; I11.9 Hypertensive heart disease without heart failure; I51.3 Intracardiac thrombosis, not elsewhere classified; I25.10 Atherosclerotic heart disease of native coronary artery without angina pectoris; F03.90 Unspecified dementia, unspecified severity, without behavioral disturbance, psychotic disturbance, mood disturbance, and anxiety; Z85.3 Personal history of malignant neoplasm of breast; Z79.01 Long term (current) use of anticoagulants; Z79.899 Other long term (current) drug therapy; Z87.891 Personal history of nicotine dependence; Z92.21 Personal history of antineoplastic chemotherapy
CPT/HCPCS: 36415; 71045; 80048; 81001; 83605; 84484; 85025; 87040; 87086; 87088; 87635; 93005; 93306; 93454; 97161; 97165; 99152; 99285; G2023; J7040; Q9956; A4216; C1769; C1894; C8929; Q9967; U0004

== ENCOUNTER → 2020-01-21 14:35 | Outpatient (CLI) | payer MEDICARE, SELFPAY ==
[2020-01-09 13:33] VITALS: BMI 29.7
--- NOTE | 2020-01-21 14:41 | CT_ITS ---
STUDY: CT BRAIN WITHOUT CONTRAST REASON FOR EXAM: Female, 84 years old. GAIT ABNORMALITY. Hx of rt breast cancer with mastectomy. RADIATION DOSAGE (If Supplied By Facility): CTDIvol = ( 44.99 ) mGy, DLP = ( 796.11 ) mGycm TECHNIQUE: Transaxial CT imaging of the brain was performed without administration of intravenous contrast material. Individualized dose optimization techniques were used for this CT. COMPARISON: No relevant priors. FINDINGS: Normal soft tissue structures. Normal calvarium. There is mild cerebral atrophy with widening of the extra-axial spaces and ventricular dilatation. There are areas of decreased attenuation within the white matter tracts of the supratentorial brain, consistent with microvascular disease changes. There are small punctate calcifications of the basal ganglia which are seen in the aging brain as a normal variant. Normal brainstem. Normal cerebellum. There is no intracranial hemorrhage. There are no findings of an acute ischemic infarction. Atherosclerotic plaque formation of the cavernous portions of the internal carotid arteries bilaterally. Normal visualized paranasal sinuses. CT/Brain/Head without Contrast IMPRESSION: Chronic involutional changes of the brain. Electronically Signed: Jamar Rodgers, at 15:05 EDT , Service support ,
== END ==
PROVIDERS: PCP Family Medicine Geriatric Medicine; Referring Provider Family Medicine Geriatric Medicine; Visit Provider Family Medicine Geriatric Medicine
DX: R26.9 Unspecified abnormalities of gait and mobility (principal)
CPT/HCPCS: 70450

== ENCOUNTER 2020-01-30 10:30 | Outpatient (RCR) | payer MEDICARE, SELFPAY ==
[2020-01-09 13:33] VITALS: BMI 29.7
--- NOTE | 2020-01-16 12:16 | HP.PTEVAL_ITS ---
Patient's Visit Information DIDI ADAIR is a 84 year old F referred to Physical Therapy by Dr. Jayesh Chavez MD with a diagnosis of Gait difficulty. Date of Evaluation: 01/16/20 Physical Therapist: Curtis Dick DPT, OCS, CSCS - Visit Plan Frequency: 2x /Week Duration: 4 Weeks Plan: 2x/week for 3-4 weeks... Please teach and give pics for home based. LE strength. postural strength. VOR and foam balance. weight shifting balance. Pt wants to progress to home based exercises as soon as safety allows. - Subjective Wants to be stronger. Dtr present nad says that gait has changed, stride not the same. Will have CT scan to make sure no blockages in head. Had a cardiac event two weeks. Put on meds for that. Gait changed maybe a month ago and stride is shorter along the lines of shuffle adn is intermittent. No pattern. Pt does not necessary notice these things. Has dementia. Tends to grab onto things more now though. walks into shower and does not need help. One fall [place] but hard for her to remember. No cane or walker. But has cane at home. Activity at home is pretty normal. Goes outside with dogs. Not afraid. Goes up and down stairs with rail and does so I. Dresses self adn no problem no problems. Does not feel dangerious with dogs. No driving in two years. Loves her recliner. Walks alot. No regular exercises. No spinning, no pain. - Objective Walks slightly avoiding FW weight shfit adn with short steps until cued. Slightly fearful to turn fast. Trasnfers out of chair without difficulty2/3x without UE. Steps are reciprocal requiring a rail for safety. VOR walking is a challenge for patient as is foam stance with eyes closed. Strength in LE is 4 at ankles and 4+ in knees and hips. sensation LE WNL to gross light touch. reflexes 2/3 patella valencia chilles. coordination to reciprocal toe tap shows slight deficits in reciprocity. Tightness present in gastroc and HS minimally. UE AROM WFL. - Balance Scores Functional Gait Assessment Score: 25 % Disability: 16.6700 CATSIB Score (Max score 120 seconds): 94 - Goals Goal 1:: I approp HEP for LE and core strength and weight shift and balance with VOR and foam to minimzie future problems Goal Time Frame: 4-6 Weeks Goal 2:: FGA to show improved balance Goal Time Frame: 4-6 Weeks Goal 3:: Pt and dtr state 50% improvement in ability to get around Goal Time Frame: 4-6 Weeks Goal 4:: LEFS score of 57 or above. Goal Time Frame: 4-6 Weeks - Rehabilitation Potential Physical Therapy Diagnosis: Gait difficulty casuing some mild mobiliity deficits Rehabilitation Potential: Fair - Anticipated Interventions Patient/Client Instruction: Educate patient on: Condition, Plan of Care For the Purpose of:: To increase tolerance to activity/condition/position, To improve ability of physical actions for home/community/work/leisure, To improve gait and locomotor functions, To improve safety with gait Therapeutic Exercise to Include: Strength training, Balance training, Coordination, Flexibilty training, Gait and locomotor training For the Purpose of:: To improve muscle performance and motor function, To increase tolerance to activity/condition/position, To improve ability of physical actions for home/community/work/leisure, To improve balance, To improve safety with gait Thank you for the opportunity to evaluate your patient. For Medicare and Medicare HMO plans, please review the plan of care and approve it. It will need to be FAXED BACK to us at [phone] for Medicare purposes. For Medicare only, by signing this I certify the plan of care. Please let me know if there are questions or concerns regarding this plan of care. Physician Signature: Date:
--- NOTE | 2020-01-30 11:25 | HP.PTDCSUM ---
It has been my pleasure to treat DIDI ADAIR referred by Dr. Jayesh Chavez MD, with the diagnosis of Gait difficulty for a total of 5 visit(s). Discharge Date: 01/30/20 Please see the following information for a summary of their discharge status. Subjective: I think I am doing good. Dtr says that she is doing better on stairs. Doing home exercises intermittently but not often enough. Dtr says in a good spot adn will do exercises at home % Improvement: 75 Objective/Function: FGA is +1 and doing well. Stood from chair without UE. Steps reciprocally with one rail. Sow cognitively to answer quetions but doing well physically. Goal 1:: I approp HEP for LE and core strength and weight shift and balance with VOR and foam to minimzie future problems Goal Progress: Goal Met Goal 2:: FGA to show improved balance Goal Progress: Progressing Goal 3:: Pt and dtr state 50% improvement in ability to get around Goal Progress: Goal Met Goal 4:: LEFS score of 57 or above. Goal Progress: 56 today Plan: d/c to HEP Discharge Comments: Will cotninue via HEP with daughter's help If there are questions or concerns regarding this patient's physical therapy, please feel free to call me at [phone]. Thank you for the referral of this patient. Sincerely, Curtis Dick, DPT, OCS, CSCS
== END 2020-01-30 19:00 | disposition home or self-care (01) ==
LOC: PT 10:30
PROVIDERS: PCP Family Medicine Geriatric Medicine; Referring Provider Family Medicine Geriatric Medicine; Visit Provider Family Medicine Geriatric Medicine
DX: R26.9 Unspecified abnormalities of gait and mobility (principal)
CPT/HCPCS: 97110; 97162; 97164; 97530

== ENCOUNTER → 2020-03-19 11:52 | Outpatient (CLI) | payer MEDICARE, SELFPAY ==
[2020-01-09 13:33] VITALS: BMI 29.7
[2020-03-19 15:32] LABS: Absolute Lymphocyte Count 1.54 X10^3/uL (0.83-4.51); Absolute Neutrophil Count 5.2 X10^3/uL (2.0-7.7); Basophil# 0.03 X10^3/uL; Basophil% 0.4 % (0-1); Eosinophil# 0.43 X10^3/uL; Eosinophils% 5.5 % (0-5); Hematocrit 45.4 % (37-47); Hemoglobin 13.9 g/dL (12.0-15.0); Lymphocyte # 1.54 X10^3/ul (4.0); Lymphocyte % 19.6 % (19-41); Mean Corp Hgb Conc 30.6 g/dL (32-36); Mean Corpuscular Hgb 28.8 pg (27.0-32.0); Mean Corpuscular Volume 94.2 fL (81-99); Mean Platelet Vol. 10.4 fl (6.2-12.0); Monocyte# 0.59 X10^3/uL; Monocyte% 7.5 % (0-10); NRBC Flagged by Analyzer 0 % (0-5); Neutrophil # 5.24 X10^3/uL (2.7-7.7); Neutrophil % 66.7 % (47-70); Platelet Count 325 K/mm3 (150-450); RBC Distribution Width CV 13.8 % (11.6-14.6); RBC Distribution Width SD 47.8 fl (35.1-43.9); Red Blood Count 4.82 M/mm3 (4.2-5.4); White Blood Count 7.9 K/mm3 (4.4-11.0)
[2020-03-19 15:46] LABS: Vitamin D,25 Hydroxy 53.8 ng/mL
[2020-03-19 15:56] LABS: ALB/GLOB Ratio 0.9 RATIO (0.9-2.4); AST(SGOT) 10 U/L (15-37); Alanine Aminotransfer ALT/SGPT 12 U/L (13-56); Albumin, Serum 3.7 g/dL (3.2-5.0); Alkaline Phosphatase 76 U/L (45-117); Anion Gap 5 (5-15); BUN 22 mg/dL (7-18); Calcium,Total 9.5 mg/dL (8.5-10.1); Chloride 103 mmol/L (98-107); Creatinine, Serum 1.16 mg/dL (0.55-1.02); EST Glomerular Filtration Rate 47 mL/min (>60); Est Glom Filt Rate - Afr Amer 57 mL/min (>60); Globulin 3.9 g/dL (2.2-4.2); Glucose 84 mg/dL (74-106); Potassium 4.4 mmol/L (3.5-5.1); Protein, Total 7.6 g/dL (6.4-8.2); Sodium Level 141 mmol/L (136-145); Thyroid Stim Hormone (TSH) 0.92 uIU/mL (0.358-3.74)
== END ==
PROVIDERS: PCP Family Medicine Geriatric Medicine; Visit Provider Family Medicine Geriatric Medicine
DX: I10 Essential (primary) hypertension (principal); E55.9 Vitamin D deficiency, unspecified
CPT/HCPCS: 36415; 80053; 82306; 84443; 85025

== ENCOUNTER → 2020-04-16 12:51 | Outpatient (CLI) | payer MEDICARE, SELFPAY ==
[2020-01-09 13:33] VITALS: BMI 29.7
--- NOTE | 2020-04-16 12:54 | ECHOCS_ITS ---
Reason For Study: CAD/ASHD Procedure This was a 2D Doppler, Color Flow transthoracic echocardiogram. Myocardial strain analysis was performed in this exam to aid in the assessment of cardiac function. Contrast injection was performed. Exam performed in department. Left Ventricle Normal LV size. Left ventricular systolic function is normal. The estimated ejection fraction is 60 %. No regional wall motion abnormalities noted. Right Ventricle Normal RV size. Normal systolic function. Atria Normal left atrium. Normal right atrium. Mitral Valve Normal mitral valve. Tricuspid Valve Normal tricuspid valve. Aortic Valve Trisinus/trileaflet aortic valve. Mild focal aortic valve calcification. Pulmonic Valve The pulmonic valve is not well visualized. Great Vessels Normal aortic root. The pulmonary artery is normal size. Normal inferior vena cava. Pericardium/Pleural No pericardial effusion. Medication Diluted definity 6ml given slow IV push to enhance endocardial definition. MMode/2D Measurements & Calculations LVIDd: 4.9 cm IVSd: 1.4 cm Ao root diam: 3.2 cm LVIDs: 3.9 cm LVPWd: 0.89 cm RVDd: 3.6 cm FS: 21.4 % LAV(MOD-bp): 54.4 ml LA A4 area: 22.0 cm2 LA dimension(2D): 4.3 cm LAV(MOD-bp) Indexed: 28.1 ml/m2 LAV(MOD-sp2): 41.1 ml LAV(MOD-sp4): 70.2 ml RA A4 area: 10.8 cm2 Doppler Measurements & Calculations MV E max rustam: 56.9 cm/sec Lat Peak E' Rustam: 7.4 cm/sec Med Peak E' Rustam: 4.8 cm/sec MV A max rustam: 84.4 cm/sec E/E' lat: 7.7 E/E' med: 11.8 MV E/A: 0.67 Ao V2 max: 196.2 cm/sec LV V1 max: 92.2 cm/sec PA V2 max: 102.1 cm/sec Ao max P.4 mmHg LV V1 max P.4 mmHg Ao V2 mean: 146.7 cm/sec Ao mean P.4 mmHg Ao V2 VTI: 41.8 cm TR max rustam: 261.5 cm/sec TR max P.4 mmHg Interpretation Summary Normal LV size. Left ventricular systolic function is normal. The estimated ejection fraction is 60 %. Contrast injection was performed. The global longitudinal strain = -17 % (normal). Compared to previous study, the left ventricular systolic function has improved.. Ordering Physician: Nic Bro Referring Physician: Jayesh Chavez Chi Performed By: Digna Reynaga, ARIN, RVT
== END ==
PROVIDERS: PCP Family Medicine Geriatric Medicine; Referring Provider Internal Medicine Cardiovascular Disease; Visit Provider Internal Medicine Cardiovascular Disease
DX: I25.10 Atherosclerotic heart disease of native coronary artery without angina pectoris (principal)
CPT/HCPCS: 93306; Q9957; A4216; C8929

== ENCOUNTER 2020-06-27 14:35 | Emergency (ER) | payer MEDICARE, SELFPAY ==
[2020-06-04 15:25] VITALS: BMI 28.4
[2020-06-27 14:38] VITALS: BP 147/91; PULSE 70; RESP 16; TEMP 37; O2SAT 94; BMI 28.0
[2020-06-27 14:43] VITALS: O2SAT 96
--- NOTE | 2020-06-27 15:20 | RAD_ITS ---
STUDY: X-RAY - RIGHT ELBOW REASON FOR EXAM: Female, 84 years old. Tripped and fell, shoulder pain. TECHNIQUE: 3 view(s) of the elbow. COMPARISON: None. FINDINGS: 3 views of the right elbow demonstrate no evidence for elbow joint effusion. There is spurring in the elbow joint noted. Radial head appears intact. There is spurring along the lateral and medial humeral epicondyle. IMPRESSION: No convincing evidence for acute fractures or dislocation seen. Electronically Signed: Pepito Jaimes, at 16:06 EST Tel , Service support , RAD/Elbow min 3 Views
--- NOTE | 2020-06-27 15:20 | RAD_ITS ---
STUDY: X-RAY - RIGHT HUMERUS REASON FOR EXAM: Female, 84 years old. Tripped and fell, shoulder pain. TECHNIQUE: 2 view(s) of the humerus. COMPARISON: None. FINDINGS: 2 views of the right humerus demonstrate no evidence for acute fractures or dislocation. Alignment appears satisfactory. IMPRESSION: No evidence for acute right-sided humeral shaft fracture. Acute Proximal comminuted humeral head neck junction fracture Electronically Signed: Pepito Jaimes, at 16:13 EST Tel , Service support , RAD/Humerus min 2 Views
--- NOTE | 2020-06-27 15:20 | CT_ITS ---
STUDY: CT BRAIN WITHOUT CONTRAST REASON FOR EXAM: Female, 84 years old. Shoulder trauma and pain RADIATION DOSAGE (If Supplied By Facility): CTDIvol = ( 44.99 ) mGy, DLP = ( 779.24 ) mGycm TECHNIQUE: Transaxial CT imaging of the brain was performed without administration of intravenous contrast material. Individualized dose optimization techniques were used for this CT. COMPARISON: 01/21/2020 FINDINGS: Normal soft tissue structures. Normal calvarium. Normal size ventricles and extra-axial spaces for the patient''s age. Nonspecific foci of low-attenuation in the periventricular and subcortical white matter seen likely related with chronic small vessel disease. There is no intracranial hemorrhage. There are no findings of an acute ischemic infarction. Normal visualized paranasal sinuses. CT/Brain/Head without Contrast IMPRESSION: No acute intracranial hemorrhage, mass effect or acute large territory infarcts. Electronically Signed: Pepito Jaimes, at 15:49 EST Tel , Service support ,
--- NOTE | 2020-06-27 15:20 | CT_ITS ---
STUDY: CT CERVICAL SPINE WITHOUT CONTRAST REASON FOR EXAM: Female, 84 years old. FELL, RT SHOULDER PAIN, DEMENTIA, HTN, HX-RT BREAST CA RADIATION DOSAGE (If Supplied By Facility): CTDIvol = ( 25.7 ) mGy, DLP = ( 543.97 ) mGycm TECHNIQUE: High resolution transaxial imaging was performed without contrast material. Sagittal and coronal images were reconstructed. Individualized dose optimization techniques were used for this CT. COMPARISON: None FINDINGS: Straightening of normal cervical lordotic curvature. Degenerative changes of the atlantodental articulation with retrodental pannus formation. Degenerative changes of the C1-C2 joint. Degenerative changes of the atlantodental occipital joint. Disc osteophyte at C3-C4 and C4-C5 level with central canal stenosis at C4-C5 level. Uncovertebral joint and facet joint degenerative changes. Disc osteophyte at C6-C7 level. Anterior and posterior osteophytic spurring. Disc space narrowing at C4-C5, C5-C6 and C6-C7 levels. T2 vertebral body sclerotic lesion which can be assessed with nonemergent nuclear medicine bone scan. Multilevel neural foraminal narrowing No prevertebral soft tissue swelling. Dens appears intact. Occipital condyles are within normal limits. C1 arch is intact. No definite skull base fractures. No apical pneumothorax. Heterogeneous enlarged appearance of the thyroid gland IMPRESSION: No evidence for acute cervical spine fractures. Cervical spondylosis. Electronically Signed: Pepito Jaimes, at 15:52 EST Tel , Service support , CT/Spine Cervical without Contras
--- NOTE | 2020-06-27 15:20 | RAD_ITS ---
STUDY: X-RAY - RIGHT SHOULDER REASON FOR EXAM: Female, 84 years old. Tripped and fell, shoulder pain. TECHNIQUE: 2 view(s) of the shoulder. COMPARISON: None. FINDINGS: 2 views of the right shoulder demonstrate an acute fracture of the right humeral head neck region. Glenohumeral joint is intact. Degenerative changes of the acromio clavicular joints. Visualized ribs appear intact. IMPRESSION: Acute right-sided humeral head neck junction fracture Electronically Signed: Pepito Jaimes, at 16:17 EST Tel , Service support , RAD/Shoulder min 2 Views
--- NOTE | 2020-06-27 15:23 | ED.DCSUM_ITS ---
- ER Visit Summary Date of Service: 06/27/20 Chief Complaint: Fall History of Present Illness: The patient is a 84 F who tripped on a dog toy. She landed on her right upper arm. No definite head injury, but she does take Eliquis. No other complaints. Physical Examination: Afebrile and vital signs unremarkable. Head and neck atraumatic. Heart regular rate. No respiratory distress. Abdomen soft. Pelvis stable. Right shoulder, right humerus, right elbow tender to palpation. Neurovascular intact distally. Abrasion to right knee. Extension intact. Neurovascular intact distally. Test Results: CT brain and cervical spine, right humerus, right elbow pending. Emergency Department Course and Treatment: Patient declined pain medicine while awaiting results. CT head and neck showed nothing acute. I reviewed the x-rays. She has a comminuted fracture to her right proximal humerus at the head and neck junction. No dislocation. The remainder of her x- rays were unremarkable. No fracture or other abnormality. I reevaluated the patient at 4:26 PM. She was requesting pain medicine. I ordered [place]. We will place her in a sling and have her follow-up with orthopedics. Treatment Plan: As above Disposition: Discharge Impression: Right humeral head fracture This note was generated with [employer] dictation software. It may contain incorrect words, spelling, and punctuation that were not noted in review of the chart prior to signing ED Disposition - Plan for ED Patient: Referrals: Jayesh Chavez Chi, MD [Primary Care Provider] -
--- NOTE | 2020-06-27 16:28 | ED.DEP ---
ED Disposition - Plan for ED Patient: Instructions: Leg or Arm Fractures, ED Fracture Upper Extremity Prescriptions: Oxycodone HCl/Acetaminophen [Percocet 5/325] 1 tab PO Q6H PRN PRN 3 Days #12 tab PRN Reason: Pain Prescription Printed Referrals: Jay Stark DO [STAFF PHYSICIAN] -
[2020-06-27] MEDS: HYDROcodone Bitartrate/Apap 5/325 Tablet PO (16:39)
[2020-06-27 16:48] VITALS: BP 131/50; PULSE 75; RESP 16
== END 2020-06-27 16:48 | disposition home or self-care (01) ==
PROVIDERS: Emergency Provider Emergency Medicine; PCP Family Medicine Geriatric Medicine
DX: Z04.3 Encounter for examination and observation following other accident (principal); S42.291A Other displaced fracture of upper end of right humerus, initial encounter for closed fracture; W18.09XA Striking against other object with subsequent fall, initial encounter; Y93.9 Activity, unspecified; Y92.9 Unspecified place or not applicable; Y99.9 Unspecified external cause status; I25.10 Atherosclerotic heart disease of native coronary artery without angina pectoris; I25.2 Old myocardial infarction; I10 Essential (primary) hypertension; F03.90 Unspecified dementia, unspecified severity, without behavioral disturbance, psychotic disturbance, mood disturbance, and anxiety; Z79.82 Long term (current) use of aspirin; Z79.01 Long term (current) use of anticoagulants; Z79.899 Other long term (current) drug therapy
CPT/HCPCS: 70450; 72125; 73030; 73060; 73080; 99284

== ENCOUNTER → 2020-09-17 11:15 | Outpatient (CLI) | payer MEDICARE, SELFPAY ==
[2020-09-17 12:49] LABS: Absolute Lymphocyte Count 1.41 X10^3/uL (0.83-4.51); Basophil# 0.06 X10^3/uL; Basophil% 0.7 % (0-1); Eosinophil# 0.75 X10^3/uL; Eosinophils% 8.4 % (0-5); Hematocrit 39.7 % (37-47); Hemoglobin 12.7 g/dL (12.0-15.0); Lymphocyte # 1.41 X10^3/ul (4.0); Lymphocyte % 15.8 % (19-41); Mean Corpuscular Hgb 30.5 pg (27.0-32.0); Mean Corpuscular Volume 95.4 fL (81-99); Mean Platelet Vol. 10.6 fl (6.2-12.0); Monocyte% 7.8 % (0-10); NRBC Flagged by Analyzer 0 % (0-5); Neutrophil # 5.99 X10^3/uL (2.7-7.7); Platelet Count 347 K/mm3 (150-450); RBC Distribution Width CV 13.5 % (11.6-14.6); RBC Distribution Width SD 47.8 fl (35.1-43.9); Red Blood Count 4.16 M/mm3 (4.2-5.4); White Blood Count 8.9 K/mm3 (4.4-11.0)
[2020-09-17 13:03] LABS: Vitamin D,25 Hydroxy 66.8 ng/mL
[2020-09-17 13:24] LABS: ALB/GLOB Ratio 0.8 RATIO (0.9-2.4); AST(SGOT) 14 U/L (15-37); Alanine Aminotransfer ALT/SGPT 13 U/L (13-56); Albumin, Serum 3.3 g/dL (3.2-5.0); Alkaline Phosphatase 104 U/L (45-117); Anion Gap 7 (5-15); BUN 27 mg/dL (7-18); BUN/Creat Ratio 22.7 RATIO (10-20); Calcium,Total 9.4 mg/dL (8.5-10.1); Chloride 104 mmol/L (98-107); Creatinine, Serum 1.19 mg/dL (0.55-1.02); EST Glomerular Filtration Rate 46 mL/min (>60); Est Glom Filt Rate - Afr Amer 56 mL/min (>60); Glucose 88 mg/dL (74-106); Potassium 3.9 mmol/L (3.5-5.1); Protein, Total 7.3 g/dL (6.4-8.2); Sodium Level 140 mmol/L (136-145); Thyroid Stim Hormone (TSH) 0.92 uIU/mL (0.358-3.74)
== END ==
PROVIDERS: PCP Family Medicine Geriatric Medicine; Visit Provider Family Medicine Geriatric Medicine
DX: I10 Essential (primary) hypertension (principal); E55.9 Vitamin D deficiency, unspecified
CPT/HCPCS: 36415; 80053; 82306; 84443; 85025

== ENCOUNTER → 2020-10-29 11:22 | Outpatient (CLI) | payer MEDICARE, SELFPAY ==
[2020-10-29 11:47] LABS: Absolute Neutrophil Count 15.2 X10^3/uL (2.0-7.7); Basophil# 0.05 X10^3/uL; Basophil% 0.3 % (0-1); Eosinophil# 0.18 X10^3/uL; Hemoglobin 10.7 g/dL (12.0-15.0); Lymphocyte % 11.4 % (19-41); Mean Corp Hgb Conc 31.5 g/dL (32-36); Mean Corpuscular Hgb 30.1 pg (27.0-32.0); Mean Corpuscular Volume 95.8 fL (81-99); Mean Platelet Vol. 10.3 fl (6.2-12.0); Monocyte# 0.77 X10^3/uL; Monocyte% 4.2 % (0-10); NRBC Flagged by Analyzer 0 % (0-5); Neutrophil # 15.15 X10^3/uL (2.7-7.7); Platelet Count 383 K/mm3 (150-450); RBC Distribution Width CV 13.9 % (11.6-14.6); RBC Distribution Width SD 48.8 fl (35.1-43.9); Red Blood Count 3.55 M/mm3 (4.2-5.4); White Blood Count 18.5 K/mm3 (4.4-11.0)
[2020-10-29 12:09] LABS: Anion Gap 8 (5-15); BUN 72 mg/dL (7-18); BUN/Creat Ratio 42.9 RATIO (10-20); Calcium,Total 9.7 mg/dL (8.5-10.1); Chloride 106 mmol/L (98-107); Creatinine, Serum 1.68 mg/dL (0.55-1.02); EST Glomerular Filtration Rate 31 mL/min (>60); Est Glom Filt Rate - Afr Amer 37 mL/min (>60); Glucose 133 mg/dL (74-106); Potassium 3.7 mmol/L (3.5-5.1); Sodium Level 140 mmol/L (136-145); Thyroid Stim Hormone (TSH) 1.79 uIU/mL (0.358-3.74)
== END ==
PROVIDERS: PCP Family Medicine Geriatric Medicine; Visit Provider Family Medicine Geriatric Medicine
DX: D64.9 Anemia, unspecified (principal); R53.83 Other fatigue
CPT/HCPCS: 36415; 80048; 84443; 85025; 86850; 86900; 86901; 87086; 87088

== ENCOUNTER → 2020-12-17 10:47 | Outpatient (CLI) | payer MEDICARE, SELFPAY ==
[2020-12-17 12:27] LABS: Absolute Lymphocyte Count 2.08 X10^3/uL (0.83-4.51); Absolute Neutrophil Count 5.3 X10^3/uL (2.0-7.7); Basophil# 0.05 X10^3/uL; Basophil% 0.6 % (0-1); Eosinophil# 0.69 X10^3/uL; Eosinophils% 7.7 % (0-5); Hematocrit 37.3 % (37-47); Hemoglobin 11.3 g/dL (12.0-15.0); Lymphocyte # 2.08 X10^3/ul (0.83-4.51); Lymphocyte % 23.2 % (19-41); Mean Corp Hgb Conc 30.3 g/dL (32-36); Mean Corpuscular Hgb 28.7 pg (27.0-32.0); Mean Corpuscular Volume 94.7 fL (81-99); Mean Platelet Vol. 10.6 fl (6.2-12.0); Monocyte# 0.84 X10^3/uL; Monocyte% 9.4 % (0-10); NRBC Flagged by Analyzer 0 % (0-5); Neutrophil # 5.28 X10^3/uL (2.7-7.7); Neutrophil % 58.8 % (47-70); Platelet Count 392 K/mm3 (150-450); RBC Distribution Width CV 13.8 % (11.6-14.6); RBC Distribution Width SD 48.1 fl (35.1-43.9); Red Blood Count 3.94 M/mm3 (4.2-5.4)
[2020-12-17 12:36] LABS: Vitamin D,25 Hydroxy 60.7 ng/mL
[2020-12-17 12:48] LABS: ALB/GLOB Ratio 0.9 RATIO (0.9-2.4); AST(SGOT) 12 U/L (15-37); Alanine Aminotransfer ALT/SGPT 10 U/L (13-56); Albumin, Serum 3.6 g/dL (3.2-5.0); Alkaline Phosphatase 104 U/L (45-117); Anion Gap 7 (5-15); BUN 26 mg/dL (7-18); BUN/Creat Ratio 17.6 RATIO (10-20); Calcium,Total 9.8 mg/dL (8.5-10.1); Chloride 101 mmol/L (98-107); Creatinine, Serum 1.48 mg/dL (0.55-1.02); EST Glomerular Filtration Rate 36 mL/min (>60); Est Glom Filt Rate - Afr Amer 43 mL/min (>60); Globulin 3.8 g/dL (2.2-4.2); Glucose 95 mg/dL (74-106); Potassium 3.8 mmol/L (3.5-5.1); Protein, Total 7.4 g/dL (6.4-8.2); Sodium Level 140 mmol/L (136-145); Thyroid Stim Hormone (TSH) 1.28 uIU/mL (0.358-3.74)
== END ==
PROVIDERS: PCP Family Medicine Geriatric Medicine; Visit Provider Family Medicine Geriatric Medicine
DX: I10 Essential (primary) hypertension (principal); E55.9 Vitamin D deficiency, unspecified
CPT/HCPCS: 36415; 80053; 82306; 84443; 85025

== ENCOUNTER → 2021-01-14 11:35 | Outpatient (CLI) | payer MEDICARE, SELFPAY ==
[2021-01-14 12:28] LABS: Absolute Neutrophil Count 6.6 X10^3/uL (2.0-7.7); Basophil# 0.04 X10^3/uL; Basophil% 0.4 % (0-1); Eosinophil# 0.51 X10^3/uL; Eosinophils% 5.1 % (0-5); Hematocrit 38.1 % (37-47); Hemoglobin 11.7 g/dL (12.0-15.0); Lymphocyte % 20.9 % (19-41); Mean Corp Hgb Conc 30.7 g/dL (32-36); Mean Corpuscular Hgb 27.9 pg (27.0-32.0); Mean Corpuscular Volume 90.7 fL (81-99); Mean Platelet Vol. 10.3 fl (6.2-12.0); Monocyte# 0.75 X10^3/uL; Monocyte% 7.5 % (0-10); NRBC Flagged by Analyzer 0 % (0-5); Neutrophil # 6.61 X10^3/uL (2.7-7.7); Neutrophil % 65.8 % (47-70); Platelet Count 348 K/mm3 (150-450); RBC Distribution Width CV 14.2 % (11.6-14.6); RBC Distribution Width SD 47.7 fl (35.1-43.9)
--- NOTE | 2021-01-14 12:49 | RAD_ITS ---
STUDY: X-RAY - LEFT ANKLE REASON FOR EXAM: Female, 85 years old. EXAM ANKLE,ANTEROPOSTERIOR/LATERAL VIEW/ ANKLE PAIN TECHNIQUE: 3 view(s) of the ankle. COMPARISON: None. FINDINGS: Normal visualized distal tibia and fibula. Normal medial and lateral malleoli. Normal tibiotalar articulation and ankle mortise. Normal visualized talus and calcaneus. The visualized subtalar, talonavicular, calcaneocuboid and tarsal articulations are normal. The soft tissue structures are unremarkable. RAD/Ankle min 3 Views IMPRESSION: Normal x-ray examination of the ankle. Electronically Signed: Telly Parry MD at 15:19 EDT Tel , Service support ,
--- NOTE | 2021-01-14 12:52 | RAD_ITS ---
STUDY: X-RAY - LEFT FOOT CLINICAL: Female, 85 years old. EXAM ANTEROPOSTERIOR /LATERAL VIEWS/ANKLE PAIN TECHNIQUE: 3 view(s) of the foot. COMPARISON: None. FINDINGS: Normal talus, calcaneus, and tarsal bones. Normal visualized subtalar, talonavicular, calcaneocuboid, tarsal and tarsometatarsal articulations. Normal metatarsi. Normal metatarsophalangeal joint of the great toe. Normal tibial and fibular sesamoid bones. Normal interphalangeal joint of the great toe. Normal phalanges of the great toe. Normal second through fifth metatarsophalangeal joints. Normal interphalangeal joints and phalanges of the lesser toes. The soft tissue structures are unremarkable. RAD/Foot min 3 Views IMPRESSION: Normal x-ray examination of the foot. Electronically Signed: Telly Parry MD at 15:20 EDT Tel , Service support ,
[2021-01-14 12:56] LABS: Anion Gap 4 (5-15); BUN 26 mg/dL (7-18); BUN/Creat Ratio 16.7 RATIO (10-20); Calcium,Total 10.5 mg/dL (8.5-10.1); Chloride 103 mmol/L (98-107); Creatinine, Serum 1.56 mg/dL (0.55-1.02); EST Glomerular Filtration Rate 34 mL/min (>60); Est Glom Filt Rate - Afr Amer 41 mL/min (>60); Glucose 100 mg/dL (74-106); Potassium 4.1 mmol/L (3.5-5.1); Sodium Level 140 mmol/L (136-145)
== END ==
PROVIDERS: PCP Family Medicine Geriatric Medicine; Referring Provider Family Medicine Geriatric Medicine; Visit Provider Family Medicine Geriatric Medicine
DX: M25.579 Pain in unspecified ankle and joints of unspecified foot (principal); R60.9 Edema, unspecified; N39.0 Urinary tract infection, site not specified
CPT/HCPCS: 36415; 73610; 73630; 80048; 85025; 87086; 87088

== ENCOUNTER → 2021-03-03 14:45 | Outpatient (CLI) | payer MEDICARE, SELFPAY ==
[2021-02-11 16:03] VITALS: BMI 22.1
[2021-03-03 15:27] LABS: Absolute Neutrophil Count 6.2 X10^3/uL (2.0-7.7); Basophil# 0.02 X10^3/uL; Basophil% 0.2 % (0-1); Eosinophil# 0.14 X10^3/uL; Eosinophils% 1.6 % (0-5); Hematocrit 37.9 % (37-47); Hemoglobin 11.9 g/dL (12.0-15.0); Lymphocyte % 20.2 % (19-41); Mean Corp Hgb Conc 31.4 g/dL (32-36); Mean Corpuscular Volume 89.2 fL (81-99); Mean Platelet Vol. 10.4 fl (6.2-12.0); Monocyte# 0.74 X10^3/uL; Monocyte% 8.3 % (0-10); NRBC Flagged by Analyzer 0 % (0-5); Neutrophil # 6.18 X10^3/uL (2.7-7.7); Neutrophil % 69.4 % (47-70); Platelet Count 295 K/mm3 (150-450); RBC Distribution Width CV 16.8 % (11.6-14.6); Red Blood Count 4.25 M/mm3 (4.2-5.4); White Blood Count 8.9 K/mm3 (4.4-11.0)
[2021-03-03 16:02] LABS: ALB/GLOB Ratio 0.9 RATIO (0.9-2.4); AST(SGOT) 18 U/L (15-37); Alanine Aminotransfer ALT/SGPT 15 U/L (13-56); Albumin, Serum 3.2 g/dL (3.2-5.0); Alkaline Phosphatase 97 U/L (45-117); Anion Gap 5 (5-15); BUN 24 mg/dL (7-18); BUN/Creat Ratio 21.2 RATIO (10-20); Calcium,Total 9.6 mg/dL (8.5-10.1); Chloride 107 mmol/L (98-107); Creatinine, Serum 1.13 mg/dL (0.55-1.02); EST Glomerular Filtration Rate 49 mL/min (>60); Est Glom Filt Rate - Afr Amer 59 mL/min (>60); Globulin 3.5 g/dL (2.2-4.2); Glucose 109 mg/dL (74-106); Protein, Total 6.7 g/dL (6.4-8.2); Sodium Level 141 mmol/L (136-145)
== END ==
PROVIDERS: PCP Family Medicine Geriatric Medicine; Referring Provider Family Medicine Geriatric Medicine; Visit Provider Family Medicine Geriatric Medicine
DX: N39.0 Urinary tract infection, site not specified (principal); G93.40 Encephalopathy, unspecified
CPT/HCPCS: 36415; 80053; 85025; 87086

== ENCOUNTER → 2021-03-03 16:42 | Outpatient (CLI) | payer MEDICARE, SELFPAY ==
[2021-02-11 16:03] VITALS: BMI 22.1
--- NOTE | 2021-03-03 16:46 | CT_ITS ---
STUDY: CT BRAIN WITHOUT CONTRAST REASON FOR EXAM: Female, 85 years old. Encephalopathy. RADIATION DOSAGE (If Supplied By Facility): CTDIvol = ( 38.43 ) mGy, DLP = ( 727.10 ) mGycm TECHNIQUE: Transaxial CT imaging of the brain was performed without administration of intravenous contrast material. Individualized dose optimization techniques were used for this CT. COMPARISON: 06/27/2020. FINDINGS: Normal soft tissue structures. Normal calvarium. There is moderate cerebral atrophy with widening of the extra-axial spaces and ventricular dilatation. There are areas of decreased attenuation within the white matter tracts of the supratentorial brain, consistent with microvascular disease changes. There are small punctate calcifications of the basal ganglia which are seen in the aging brain as a normal variant. Normal brainstem. Normal cerebellum. There is no intracranial hemorrhage. There are no findings of an acute ischemic infarction. Normal visualized paranasal sinuses. CT/Brain/Head without Contrast IMPRESSION: Chronic involutional changes without evidence of acute intracranial or calvarial abnormality. There is no major interval change. Electronically Signed: Maxx Covington DO at 17:16 EDT Tel [phone], Service support ,
== END ==
PROVIDERS: PCP Family Medicine Geriatric Medicine; Referring Provider Family Medicine Geriatric Medicine; Visit Provider Family Medicine Geriatric Medicine
DX: G93.40 Encephalopathy, unspecified (principal); N39.0 Urinary tract infection, site not specified
CPT/HCPCS: 36415; 70450; 80053; 85025; 87086; 87088

== ENCOUNTER → 2021-03-04 09:40 | Outpatient (CLI) | payer MEDICARE, SELFPAY ==
[2021-02-11 16:03] VITALS: BMI 22.1
== END ==
PROVIDERS: PCP Family Medicine Geriatric Medicine; Referring Provider Family Medicine Geriatric Medicine; Visit Provider Family Medicine Geriatric Medicine
DX: R06.89 Other abnormalities of breathing (principal)
CPT/HCPCS: 87635; 87804; 87807; C9803; U0005; U0003

== ENCOUNTER → 2021-03-18 11:48 | Outpatient (CLI) | payer MEDICARE, SELFPAY ==
[2021-02-11 16:03] VITALS: BMI 22.1
[2021-03-18 12:57] LABS: Absolute Lymphocyte Count 1.73 X10^3/uL (0.83-4.51); Absolute Neutrophil Count 5.4 X10^3/uL (2.0-7.7); Basophil# 0.04 X10^3/uL; Basophil% 0.5 % (0-1); Eosinophil# 0.28 X10^3/uL; Eosinophils% 3.5 % (0-5); Hematocrit 38.6 % (37-47); Lymphocyte # 1.73 X10^3/ul (0.83-4.51); Lymphocyte % 21.4 % (19-41); Mean Corp Hgb Conc 31.1 g/dL (32-36); Mean Corpuscular Hgb 28.2 pg (27.0-32.0); Mean Corpuscular Volume 90.8 fL (81-99); Mean Platelet Vol. 10.5 fl (6.2-12.0); Monocyte# 0.62 X10^3/uL; Monocyte% 7.7 % (0-10); NRBC Flagged by Analyzer 0 % (0-5); Neutrophil % 66.7 % (47-70); Platelet Count 292 K/mm3 (150-450); RBC Distribution Width SD 59.7 fl (35.1-43.9); Red Blood Count 4.25 M/mm3 (4.2-5.4); White Blood Count 8.1 K/mm3 (4.4-11.0)
[2021-03-18 13:18] LABS: AST(SGOT) 18 U/L (15-37); Alanine Aminotransfer ALT/SGPT 17 U/L (13-56); Albumin, Serum 3.3 g/dL (3.2-5.0); Alkaline Phosphatase 95 U/L (45-117); Anion Gap 7 (5-15); BUN 16 mg/dL (7-18); Calcium,Total 9.1 mg/dL (8.5-10.1); Chloride 105 mmol/L (98-107); EST Glomerular Filtration Rate 56 mL/min (>60); Est Glom Filt Rate - Afr Amer 68 mL/min (>60); Globulin 3.3 g/dL (2.2-4.2); Glucose 113 mg/dL (74-106); Potassium 3.6 mmol/L (3.5-5.1); Protein, Total 6.6 g/dL (6.4-8.2); Sodium Level 143 mmol/L (136-145); Thyroid Stim Hormone (TSH) 0.75 uIU/mL (0.358-3.74)
== END ==
PROVIDERS: PCP Family Medicine Geriatric Medicine; Visit Provider Family Medicine Geriatric Medicine
DX: I10 Essential (primary) hypertension (principal); E55.9 Vitamin D deficiency, unspecified
CPT/HCPCS: 36415; 80053; 82306; 84443; 85025

== ENCOUNTER → 2021-03-24 14:07 | Outpatient (CLI) | payer MEDICARE, SELFPAY ==
--- NOTE | 2021-03-24 14:11 | RAD_ITS ---
STUDY: X-RAY - LEFT ANKLE REASON FOR EXAM: Female, 85 years old. Ankle pain. TECHNIQUE: 4 view(s) of the ankle. COMPARISON: 01/14/2021. FINDINGS: Generalized osteopenia. Small inferior calcaneal spur. Ossification of the plantar fascial and of the distal Achilles tendon. Diffuse soft tissue swelling. RAD/Ankle min 3 Views IMPRESSION: Osteopenia with diffuse soft tissue swelling. No other significant finding. Electronically Signed: Devante Faustin MD at 10:08 EDT , Service support ,
--- NOTE | 2021-03-24 14:11 | RAD_ITS ---
STUDY: X-RAY - LEFT FOOT CLINICAL: Female, 85 years old. Foot pain. TECHNIQUE: 3 view(s) of the foot. COMPARISON: None. FINDINGS: Osteopenia. Small inferior calcaneal spur. Normal talus, calcaneus, and tarsal bones. Normal visualized subtalar, talonavicular, calcaneocuboid, tarsal and tarsometatarsal articulations. Normal metatarsi. Moderate arthrosis of the MTP and IP joints, most marked at the first MTP joint. Minimal hallux valgus deformity of the first toe. Linear ossification of the proximal plantar fascia. RAD/Foot min 3 Views IMPRESSION: Osteopenia with small inferior calcaneal spur and osteoarthritic changes of the MTP and IP joints. Minimal hallux valgus deformity of the first toe. No acute abnormality, erosive changes or periostitis. Electronically Signed: Devante Faustin MD at 10:10 EDT , Service support ,
== END ==
PROVIDERS: PCP Family Medicine Geriatric Medicine; Referring Provider Family Medicine Geriatric Medicine; Visit Provider Family Medicine Geriatric Medicine
DX: M19.072 Primary osteoarthritis, left ankle and foot (principal); M20.12 Hallux valgus (acquired), left foot; M77.32 Calcaneal spur, left foot
CPT/HCPCS: 73610; 73630

== ENCOUNTER → 2021-06-17 10:50 | Outpatient (CLI) | payer MEDICARE, SELFPAY ==
[2021-06-17 11:29] LABS: Absolute Lymphocyte Count 1.96 X10^3/uL (0.83-4.51); Absolute Neutrophil Count 5.3 X10^3/uL (2.0-7.7); Basophil# 0.06 X10^3/uL; Basophil% 0.7 % (0-1); Eosinophils% 5.9 % (0-5); Hematocrit 40.5 % (37-47); Hemoglobin 12.7 g/dL (12.0-15.0); Lymphocyte # 1.96 X10^3/ul (0.83-4.51); Lymphocyte % 23.2 % (19-41); Mean Corp Hgb Conc 31.4 g/dL (32-36); Mean Corpuscular Hgb 29.5 pg (27.0-32.0); Mean Platelet Vol. 10.3 fl (6.2-12.0); Monocyte# 0.65 X10^3/uL; Monocyte% 7.7 % (0-10); NRBC Flagged by Analyzer 0 % (0-5); Neutrophil # 5.26 X10^3/uL (2.7-7.7); Neutrophil % 62.1 % (47-70); Platelet Count 312 K/mm3 (150-450); RBC Distribution Width CV 14.4 % (11.6-14.6); RBC Distribution Width SD 50.3 fl (35.1-43.9); Red Blood Count 4.31 M/mm3 (4.2-5.4); White Blood Count 8.5 K/mm3 (4.4-11.0)
[2021-06-17 11:53] LABS: ALB/GLOB Ratio 0.8 RATIO (0.9-2.4); AST(SGOT) 32 U/L (15-37); Alanine Aminotransfer ALT/SGPT 14 U/L (13-56); Albumin, Serum 2.9 g/dL (3.2-5.0); Alkaline Phosphatase 89 U/L (45-117); Anion Gap 9 (5-15); BUN 17 mg/dL (7-18); BUN/Creat Ratio 16.2 RATIO (10-20); Calcium,Total 9.5 mg/dL (8.5-10.1); Chloride 107 mmol/L (98-107); Creatinine, Serum 1.05 mg/dL (0.55-1.02); EST Glomerular Filtration Rate 53 mL/min (>60); Est Glom Filt Rate - Afr Amer 64 mL/min (>60); Globulin 3.8 g/dL (2.2-4.2); Glucose 106 mg/dL (74-106); Potassium 3.5 mmol/L (3.5-5.1); Protein, Total 6.7 g/dL (6.4-8.2); Sodium Level 144 mmol/L (136-145); Thyroid Stim Hormone (TSH) 0.84 uIU/mL (0.358-3.74)
[2021-06-17 12:12] LABS: Vitamin D,25 Hydroxy 63.4 ng/mL
== END ==
PROVIDERS: PCP Family Medicine Geriatric Medicine; Visit Provider Family Medicine Geriatric Medicine
DX: I10 Essential (primary) hypertension (principal); E55.9 Vitamin D deficiency, unspecified
CPT/HCPCS: 36415; 80053; 82306; 84443; 85025

== ENCOUNTER 2021-09-23 09:32 | Outpatient (CLI) | payer MEDICARE, SELFPAY ==
--- NOTE | 2021-09-23 12:03 | RAD_ITS ---
STUDY: XR Chest 2 Views 09/23/2021 12:24 PM REASON FOR EXAM: Female, 85 years old. CHEST PAIN WEIHT LOSS COMPARISON: 12/29/2019 TECHNIQUE: XR Chest 2 Views FINDINGS: There is no demonstrated pleural abnormality. The lung gilman are hyperexpanded. There are multiple metallic clips in the right axilla. This is consistent for a prior axillary dissection. There are mastectomy changes noted. Normal heart size. Normal mediastinum. Normal sumaya. Prominent appearing increased interstitial lung markings. Normal visualized pulmonary arteries. There is atherosclerotic calcification of the aortic arch with tortuosity. There are diffuse degenerative changes of the visualized thoracic spine. There is degenerative osteoarthritis of the bilateral shoulders. There is no demonstrated abnormality of the visualized soft tissue structures of the upper abdomen. RAD/Chest PA and Lateral IMPRESSION: There are no acute findings. Electronically Signed: Yohan Krishna MD at 16:38 EST ,
[2021-09-23 12:38] LABS: Absolute Lymphocyte Count 2.16 X10^3/uL (0.83-4.51); Absolute Neutrophil Count 5.4 X10^3/uL (2.0-7.7); Basophil# 0.06 X10^3/uL; Basophil% 0.7 % (0-1); Eosinophil# 0.46 X10^3/uL; Eosinophils% 5.2 % (0-5); Hematocrit 41.9 % (37-47); Hemoglobin 13.2 g/dL (12.0-15.0); Lymphocyte # 2.16 X10^3/ul (0.83-4.51); Lymphocyte % 24.5 % (19-41); Mean Corp Hgb Conc 31.5 g/dL (32-36); Mean Corpuscular Hgb 29.4 pg (27.0-32.0); Mean Corpuscular Volume 93.3 fL (81-99); Mean Platelet Vol. 10.7 fl (6.2-12.0); Monocyte# 0.67 X10^3/uL; Monocyte% 7.6 % (0-10); NRBC Flagged by Analyzer 0 % (0-5); Neutrophil # 5.43 X10^3/uL (2.7-7.7); Neutrophil % 61.8 % (47-70); Platelet Count 308 K/mm3 (150-450); RBC Distribution Width CV 15.7 % (11.6-14.6); RBC Distribution Width SD 53.8 fl (35.1-43.9); Red Blood Count 4.49 M/mm3 (4.2-5.4); White Blood Count 8.8 K/mm3 (4.4-11.0)
[2021-09-23 12:50] LABS: Vitamin D,25 Hydroxy 74.9 ng/mL
[2021-09-23 13:02] LABS: AST(SGOT) 21 U/L (15-37); Alanine Aminotransfer ALT/SGPT 30 U/L (13-56); Albumin, Serum 3.2 g/dL (3.2-5.0); Alkaline Phosphatase 85 U/L (45-117); Anion Gap 5 (5-15); BUN 15 mg/dL (7-18); BUN/Creat Ratio 13.2 RATIO (10-20); Calcium,Total 9.4 mg/dL (8.5-10.1); Chloride 107 mmol/L (98-107); Creatinine, Serum 1.14 mg/dL (0.55-1.02); EST Glomerular Filtration Rate 48 mL/min (>60); Est Glom Filt Rate - Afr Amer 58 mL/min (>60); Globulin 3.3 g/dL (2.2-4.2); Glucose 116 mg/dL (74-106); Potassium 3.2 mmol/L (3.5-5.1); Protein, Total 6.5 g/dL (6.4-8.2); Sodium Level 144 mmol/L (136-145); Thyroid Stim Hormone (TSH) 1.14 uIU/mL (0.358-3.74)
== END 2021-09-23 23:59 | disposition home or self-care (01) ==
PROVIDERS: PCP Family Medicine Geriatric Medicine; Referring Provider Family Medicine Geriatric Medicine; Visit Provider Family Medicine Geriatric Medicine
DX: I10 Essential (primary) hypertension (principal); E55.9 Vitamin D deficiency, unspecified
CPT/HCPCS: 36415; 71046; 80053; 82306; 84443; 85025

== ENCOUNTER 2021-10-04 10:28 | Outpatient (CLI) | payer MEDICARE, SELFPAY ==
[2021-10-04 11:58] LABS: Anion Gap 7 (5-15); BUN 24 mg/dL (7-18); BUN/Creat Ratio 16.9 RATIO (10-20); Calcium,Total 9.8 mg/dL (8.5-10.1); Chloride 105 mmol/L (98-107); Creatinine, Serum 1.42 mg/dL (0.55-1.02); EST Glomerular Filtration Rate 37 mL/min (>60); Est Glom Filt Rate - Afr Amer 45 mL/min (>60); Glucose 121 mg/dL (74-106); Sodium Level 141 mmol/L (136-145)
== END 2021-10-04 23:59 | disposition home or self-care (01) ==
LOC: LAB 10:31
PROVIDERS: PCP Family Medicine Geriatric Medicine; Referring Provider Family Medicine Geriatric Medicine; Visit Provider Family Medicine Geriatric Medicine
DX: E87.6 Hypokalemia (principal)
CPT/HCPCS: 36415; 80048

== ENCOUNTER 2021-10-23 13:05 | Emergency (ER) | payer MEDICARE, SELFPAY ==
[2021-10-23 13:06] VITALS: BP 112/65; PULSE 64; RESP 16; TEMP 36.4; O2SAT 97; BMI 19.7
--- NOTE | 2021-10-23 13:40 | RAD_ITS ---
EXAM: XR CHEST, 1 VIEW : 1935 CLINICAL INDICATION: chest pain TECHNIQUE: Frontal view of the chest. This report was created using [employer] report generation technology. COMPARISON: 09/23/2021 FINDINGS: LUNGS AND PLEURAL SPACES: Unremarkable. No consolidation or edema. No pneumothorax. No effusion. HEART: Unremarkable. Cardiac silhouette not enlarged. MEDIASTINUM: Central airways and mediastinal contour are unremarkable. BONES/JOINTS: Unremarkable. SOFT TISSUES: Unremarkable. RAD/Chest 1 View (Portable) IMPRESSION: No radiographic evidence of acute cardiopulmonary disease. at 1437 Reported and signed by: Girma Hua MD Electronically Signed: Girma Hua MD at 14:36 EDT ,
--- NOTE | 2021-10-23 13:40 | EKG12_ITS ---
Test Reason : NEURO S/SX Blood Pressure : / mmHG Vent. Rate : 077 BPM Atrial Rate : 077 BPM P-R Int : 174 ms QRS Dur : 118 ms QT Int : 398 ms P-R-T Axes : 046 010 -01 degrees QTc Int : 450 ms Sinus rhythm with Premature supraventricular complexes Nonspecific ST abnormality Abnormal ECG Confirmed by JACQUES COSTELLO, RODO ([id number]), editor & co founder YAMIL WISEMAN ([id number]) on 10/25/2021 11:38:51 A M Referred By: KATHERINE Confirmed By:BELINDA HANNA MD
--- NOTE | 2021-10-23 13:40 | CT_ITS ---
EXAM: CT HEAD WITHOUT INTRAVENOUS CONTRAST : 1935 CLINICAL INDICATION: confusion TECHNIQUE: Multiple axial images were obtained of the head without intravenous contrast. This CT exam was performed using one or more of the following dose reduction techniques: automated exposure control, adjustment of the mA and/or kV according to patient size, and/or use of iterative reconstruction technique. This report was created using [employer] report generation technology. COMPARISON: 03/03/2021 FINDINGS: BRAIN AND EXTRA-AXIAL SPACES: There is enlargement of the ventricular system and cortical sulci. There is hypoattenuation in the periventricular white matter. No intra- or extra-axial hemorrhage. No evidence of acute infarct. No intracranial mass or mass effect. There is preservation of the hagan/white matter interface. Posterior fossa structures are unremarkable. Basal cisterns are patent. BONES/JOINTS: Unremarkable. No discrete lytic or blastic abnormalities. SINUSES: Unremarkable as visualized. Clear. MASTOID AIR CELLS: Unremarkable. Clear. ORBITS: Visualized globes, extraocular muscles, optic nerves and retrobulbar fat appear unremarkable. CT/Brain/Head without Contrast IMPRESSION: 1. No acute intracranial abnormality. There has been no change from the reference examination. 2. Stable underlying senescent change with small vessel ischemia. Individualized dose optimization techniques were used for this CT. at 1441 Reported and signed by: Girma Hua MD Electronically Signed: Girma Hua MD at 14:39 EDT ,
[2021-10-23 13:51] LABS: Absolute Lymphocyte Count 2.62 X10^3/uL (0.83-4.51); Absolute Neutrophil Count 5.2 X10^3/uL (2.0-7.7); Basophil# 0.06 X10^3/uL; Basophil% 0.7 % (0-1); Eosinophil# 0.33 X10^3/uL; Eosinophils% 3.7 % (0-5); Hematocrit 40.3 % (37-47); Hemoglobin 13.1 g/dL (12.0-15.0); Lymphocyte # 2.62 X10^3/ul (0.83-4.51); Lymphocyte % 29.3 % (19-41); Mean Corp Hgb Conc 32.5 g/dL (32-36); Mean Corpuscular Hgb 30.5 pg (27.0-32.0); Mean Corpuscular Volume 93.7 fL (81-99); Mean Platelet Vol. 10.7 fl (6.2-12.0); Monocyte# 0.75 X10^3/uL; Monocyte% 8.4 % (0-10); NRBC Flagged by Analyzer 0 % (0-5); Neutrophil # 5.15 X10^3/uL (2.7-7.7); Neutrophil % 57.6 % (47-70); Platelet Count 255 K/mm3 (150-450); RBC Distribution Width CV 14.7 % (11.6-14.6); RBC Distribution Width SD 51.1 fl (35.1-43.9); White Blood Count 8.9 K/mm3 (4.4-11.0)
[2021-10-23 14:05] LABS: Anion Gap 3 (5-15); BUN 22 mg/dL (7-18); BUN/Creat Ratio 18.2 RATIO (10-20); Chloride 107 mmol/L (98-107); Creatinine, Serum 1.21 mg/dL (0.55-1.02); EST Glomerular Filtration Rate 45 mL/min (>60); Est Glom Filt Rate - Afr Amer 54 mL/min (>60); Estimated Creatinine Clearance 28.87 ml/min; Glucose 93 mg/dL (74-106); Potassium 3.7 mmol/L (3.5-5.1); Sodium Level 141 mmol/L (136-145); Troponin-I HS 9 pg/mL (3.0-54.0)
--- NOTE | 2021-10-23 14:11 | EDS_ITS ---
HPI History of Present Illness Chief Complaint: Neuro S/Sx Narrative Narrative: 85-year-old female with history of dementia presenting with family out of concern for altered mental status which resolved. Patient was seen sitting at the table and stated she did not feel well. After this she began waving her arms in an odd manner [id number] while slumped over. She continued to mumble throughout this time. The whole episode probably lasted about 2 to 3 minutes per family. They moved her to a chair and her symptoms resolved. The patient herself has no complaints. She is hard of hearing but speaking clearly. She denies any pain anywhere. She does not feel short of breath. [facility] Medical History Abnormal EKG Atherosclerosis of coronary artery without angina pectoris Breast cancer Dementia Elevated troponin (12/30/19) Essential (primary) hypertension History of non-ST elevation myocardial infarction (NSTEMI) (12/30/19) Left ventricular diastolic dysfunction LV (left ventricular) mural thrombus (12/30/19) Non-ischemic cardiomyopathy Sepsis UTI (urinary tract infection) Home Medications ascorbic acid (vitamin C) 1,000 mg PO DAILY 12/30/19 [History Last Taken 12/29/19 09:00 1000 mg] cholecalciferol (vitamin D3) 1,000 unit PO DAILY 12/30/19 [History Last Taken 12/29/19 09:00 1000 unit] donepezil 10 mg PO DAILY 12/30/19 [History Last Taken 12/29/19 21:00 10 mg] memantine 10 mg PO BID 12/30/19 [History Last Taken 12/29/19 21:00 10 mg] timolol maleate 1 drp EACH EYE BID 12/30/19 [History Last Taken 12/29/19 21:00 1 drop] aspirin 81 mg PO DAILY@0800 #30 tab 12/31/19 [Rx Last Taken Unknown] lutein 20 mg capsule 20 mg PO DAILY 01/09/20 [History Last Taken Unknown] atorvastatin 40 mg tablet 40 mg PO QHS 06/04/20 [History Last Taken Unknown] carbidopa 25 mg-levodopa 100 mg tablet 1 tab PO TID 06/04/20 [History Last Taken Unknown] carvedilol 3.125 mg tablet 3.125 mg PO BID #180 tab 11/16/20 [Rx Last Taken Unknown] calcium carbonate 600 mg-vitamin D3 20 mcg (800 unit) tablet 1 tab PO DAILY 02/11/21 [History Last Taken Unknown] latanoprost 0.005 % eye drops 1 drp OPHTHALMIC (EYE) DAILY ml 02/11/21 [History Last Taken Unknown] lisinopril 20 mg tablet 20 mg PO DAILY #30 tab 02/11/21 [Rx Last Taken Unknown] mirtazapine 7.5 mg tablet 7.5 mg PO DAILY tab 02/11/21 [History Last Taken Unknown] Allergy/AdvReac Type Severity Reaction Status Date / Time No Known Allergies Allergy Verified 10/23/21 13:14 Surgical History History of left heart catheterization (12/31/19) History of right mastectomy Social History Smoking Status: Former smoker how long ago did patient quit smokin years ago alcohol intake: never substance use type: does not use caffeine: Yes Type: coffee Number of servings: 1 ROS ROS ED Constitutional Constitutional ED: Denies chills or fever(s) Eyes Eyes: Denies blurry vision or change in vision ENT ENT ED: Denies rhinorrhea or sore throat Cardiovascular Cardiovascular: Denies chest pain Respiratory/Chest Respiratory/Chest: Denies cough, dyspnea or sputum Gastrointestinal Gastrointestinal: Denies abdominal pain, nausea or vomiting Genitourinary Genitourinary ED: Denies dysuria or hematuria Musculoskeletal Musculoskeletal: Denies arthralgias, back pain, myalgias or neck pain Integumentary Denies rash Neurologic Neurologic: Denies headache(s) or paresthesias EXAM Physical Exam Const Vital Signs: 10/23/21 13:06 10/23/21 14:27 10/23/21 14:48 Temperature 97.5 F L Temperature Source Temporal Pulse Rate 64 73 Respiratory Rate 16 18 Blood Pressure 112/65 122/64 H Blood Pressure Mean 80 83 Pulse Ox 97 97 Oxygen Delivery Method Room Air Room Air Room Air 10/23/21 15:26 10/23/21 16:06 Temperature Temperature Source Pulse Rate 74 74 Respiratory Rate 16 17 Blood Pressure 114/61 118/59 L Blood Pressure Mean 78 78 Pulse Ox 96 97 Oxygen Delivery Method Room Air Room Air Positive well nourished General Appearance ED: NAD; Negative for pallor HEENT Reports moist mucous membranes Negative for trauma Eyes PERRL and EOMs intact bilaterally Neck no lymphadenopathy and supple Resp normal respiratory effort and clear to auscultation bilaterally Cardio regular rate and regular rhythm GI normal to inspection, nondistended, normoactive bowel sounds Neuro oriented x3, CN's II-XII intact bilaterally and no sensory deficits noted Sensorium / Orientation: alert Motor Exam: strength 5/5 throughout Psych mental status grossly normal Skin General Skin Exam: Negative for jaundice or pallor MDM MDM MDM Narrative Medical decision making narrative: Patient presenting with altered mental status which have resolved. She is not anticoagulated but was previously anticoagulated for history of mural thrombosis in the ventricle. Patient's prehospital rhythm appears to be atrial fibrillation however on arrival her EKG appears to be a sinus rhythm at a rate of 77 bpm on my interpretation. There is nonspecific ST-T wave changes. Patient not reporting any chest pain or shortness of breath. She is currently neurologically intact. She is at baseline per family. There was concern for TIA so I did obtain a CT of the brain which is negative. CBC and BMP unremarkable. High-sensitivity troponin is 9. Urinalysis negative for infection. Repeat high-sensitivity troponin at 2 hours is also 9. Had a discussion with the patient and family about being committed out of concern for TIA and the patient is not anticoagulated. The hospitalist did come to talk with them and at that point he did not feel they wanted her to be admitted to the hospital. They will continue to monitor at home. They acknowledge that A. fib is a risk for stroke. Patient is discharged and return precautions are given. Patient will follow up with cardiology otherwise. Impression: 1. altered mental status resolved 2. Atrial fibrillation Lab Data Attestation: I reviewed the patient's lab results. Labs: Laboratory Results - last 24 hr 10/23/21 10/23/21 10/23/21 13:17 13:17 15:11 WBC 8.9 RBC 4.30 Hgb 13.1 Hct 40.3 MCV 93.7 MCH 30.5 MCHC 32.5 RDW Std Deviation 51.1 H RDW Coeff of Michael 14.7 H Plt Count 255 MPV 10.7 Immature Gran % (Auto) 0.300 Neut % (Auto) 57.6 Lymph % (Auto) 29.3 Hand % (Auto) 8.4 Eos % (Auto) 3.7 Baso % (Auto) 0.7 Absolute Neuts (auto) 5.2 Absolute Lymphs (auto) 2.62 Nucleated RBC % 0 Sodium 141 Potassium 3.7 Chloride 107 Carbon Dioxide 31.0 Anion Gap 3 L BUN 22 H Creatinine 1.21 H Estim Creat Clear Calc 28.87 Est GFR (MDRD) Af Amer 54 L Est GFR (MDRD) Non-Af 45 L BUN/Creatinine Ratio 18.2 Glucose 93 Calcium 10.0 Troponin I High Sens 9 Urine Color Yellow Urine Clarity Clear Urine pH 5.0 Ur Specific [place] 1.030 Urine Protein 15 H Urine Glucose (UA) Normal Urine Ketones Negative Urine Occult Blood Negative Urine Nitrite Negative Urine Bilirubin Negative Urine Urobilinogen Normal Ur Leukocyte Esterase 25 H Urine RBC 0 SEEN Urine WBC 0-5 SEEN Ur Squamous Epith Cells 0 SEEN Calcium Oxalate Crystal 2+ Urine Bacteria 0 SEEN Urine Mucus 0 SEEN 10/23/21 15:45 WBC RBC Hgb Hct MCV MCH MCHC RDW Std Deviation RDW Coeff of Michael Plt Count MPV Immature Gran % (Auto) Neut % (Auto) Lymph % (Auto) Hand % (Auto) Eos % (Auto) Baso % (Auto) Absolute Neuts (auto) Absolute Lymphs (auto) Nucleated RBC % Sodium Potassium Chloride Carbon Dioxide Anion Gap BUN Creatinine Estim Creat Clear Calc Est GFR (MDRD) Af Amer Est GFR (MDRD) Non-Af BUN/Creatinine Ratio Glucose Calcium Troponin I High Sens 9 Urine Color Urine Clarity Urine pH Ur Specific [place] Urine Protein Urine Glucose (UA) Urine Ketones Urine Occult Blood Urine Nitrite Urine Bilirubin Urine Urobilinogen Ur Leukocyte Esterase Urine RBC Urine WBC Ur Squamous Epith Cells Calcium Oxalate Crystal Urine Bacteria Urine Mucus Radiography Diagnostic Testing: Clinical Impression(s) from Imaging Studies Brain CT 10/23/21 13:40 IMPRESSION: 1. No acute intracranial abnormality. There has been no change from the reference examination. 2. Stable underlying senescent change with small vessel ischemia. Individualized dose optimization techniques were used for this CT. at 1441 Reported and signed by: Girma Hua MD Electronically Signed: Girma Hua MD at 14:39 EDT , Chest X-Ray 10/23/21 13:40 IMPRESSION: No radiographic evidence of acute cardiopulmonary disease. at 1437 Reported and signed by: Girma Hua MD Electronically Signed: Girma Hua MD at 14:36 EDT , Discharge Plan Triage Chief Complaint: Neuro S/Sx ED Provider: Samuel Hebret Dx/Rx/DC Orders Instructions: ED TIA: Transient Ischemic Attack Prescriptions: No Action lutein 20 mg capsule 20 mg PO DAILY RF: 0 atorvastatin 40 mg tablet 40 mg PO QHS RF: 0 carbidopa-levodopa 25-100 mg tablet 1 tab PO TID RF: 0 calcium carbonate-vitamin D3 600 mg(1,500mg) -800 unit tablet 1 tab PO DAILY RF: 0 latanoprost 0.005 % drops 1 drp ophthalmic (eye) DAILY RF: 0 mirtazapine 7.5 mg tablet 7.5 mg PO DAILY RF: 0 lisinopril 20 mg tablet 20 mg PO DAILY Qty: 30 RF: 11 timolol maleate 1 DROP drops 1 drp EACH EYE BID RF: 0 donepezil 10 MG tablet 10 mg PO DAILY RF: 0 memantine 10 MG tablet 10 mg PO BID RF: 0 ascorbic acid (vitamin C) 1,000 MG tablet 1,000 mg PO DAILY RF: 0 cholecalciferol (vitamin D3) 1,000 UNIT tablet 1,000 unit PO DAILY RF: 0 aspirin 81 MG tablet 81 mg PO DAILY@0800 Qty: 30 RF: 0 carvedilol 3.125 mg tablet 3.125 mg PO BID Qty: 180 RF: 3 Primary Care Provider: Jayesh Chavez Chi Referrals: Jayesh Chavez Chi, MD [Primary Care Provider] - Disposition Disposition: Home, Self Care Discharge Date/Time: 10/23/21 16:43
[2021-10-23 14:48] VITALS: BP 122/64; PULSE 73; RESP 18; O2SAT 97
[2021-10-23 15:19] LABS: Bacteria 0 SEEN /hpf (None Seen); Mucous, Urine 0 SEEN /hpf (<or=2+); Red Blood Cells-Urine 0 SEEN /hpf (0-5); Squamous Epithelial Cells - UA 0 SEEN /hpf (5-10)
[2021-10-23 15:25] LABS: Color, Urine Yellow (Yellow); Glucose, Dipstick Normal (Normal); Ketone-Dipstick Negative (Negative); Leukocyte Esterase-Dipstick 25 /ul (Negative); Nitrite-Dipstick Negative (Negative); Occult Blood-Urine Negative /ul (Negative); Protein-Dipstick 15 mg/dl (Negative); Urine Bilirubin Dipstick Negative (Negative); Urine Clarity Clear (Clear); Urine Urobilinogen Normal (Normal)
[2021-10-23 15:26] VITALS: BP 114/61; PULSE 74; RESP 16; O2SAT 96
[2021-10-23 15:39] LABS: Calcium Oxalate Crystals Ur 2+ /hpf (<or=2+); White Blood Cells 0-5 SEEN /hpf (0-5)
[2021-10-23 16:06] VITALS: BP 118/59; PULSE 74; RESP 17; O2SAT 97
[2021-10-23 16:07] LABS: Troponin-I HS 9 pg/mL (3.0-54.0)
== END 2021-10-23 16:43 | disposition home or self-care (01) ==
PROVIDERS: Emergency Provider Student in an Organized Health Care Education/Training Program; PCP Family Medicine Geriatric Medicine; Visit Provider Student in an Organized Health Care Education/Training Program
DX: I48.91 Unspecified atrial fibrillation (principal); F03.90 Unspecified dementia, unspecified severity, without behavioral disturbance, psychotic disturbance, mood disturbance, and anxiety; I42.8 Other cardiomyopathies; I25.10 Atherosclerotic heart disease of native coronary artery without angina pectoris; I25.2 Old myocardial infarction; I11.9 Hypertensive heart disease without heart failure; Z79.82 Long term (current) use of aspirin; Z79.899 Other long term (current) drug therapy; Z87.891 Personal history of nicotine dependence
CPT/HCPCS: 70450; 71045; 80048; 81001; 84484; 85025; 93005; 99285; A4216

== ENCOUNTER 2021-11-11 15:26 | Outpatient (CLI) | payer MEDICARE, SELFPAY ==
--- NOTE | 2021-11-11 15:30 | BI_ITS ---
MAMMOGRAPHY - UNILATERAL SCREENING: LEFT BREAST REASON FOR EXAM: Female, 86 years old. Routine annual screening examination (unilateral). PERTINENT HISTORY: Personal history of breast cancer. Prior right mastectomy. Mother with breast cancer. TECHNIQUE: Digital unilateral breast leon (3D mammographic acquisition) in the CC and MLO projections. 2-D mediolateral oblique (MLO) and craniocaudad (CC) views of both breasts were obtained. CAD: Full Field Digital Mammography with Computer Added Detection was performed. COMPARISON: Comparison is made with prior study dated 06/27/2019. FINDINGS: Breast Composition: The breasts are almost entirely fatty. There are no dominant masses or suspicious calcifications. No other significant abnormalities are identified. There has been no significant change since the prior study. BI/SCREEN MAMM (CAD) W/LEON UNI L IMPRESSION: Stable unilateral screening mammogram. Yearly follow-up mammogram recommended. (A) ASSESSMENT CATEGORY: BIRADS Category 1: Negative. A letter regarding these results will be sent to the patient by the facility within 30 days. Approximately 10% of breast cancers are not detected by mammography. A normal mammogram should not delay biopsy of a clinically suspicious abnormality. [id number] Electronically Signed: Jamar Rodgers MD at 8:37 EDT ,
== END 2021-11-11 23:59 | disposition home or self-care (01) ==
LOC: OPBI 15:27
PROVIDERS: PCP Family Medicine Geriatric Medicine; Visit Provider Family Medicine Geriatric Medicine
DX: Z12.31 Encounter for screening mammogram for malignant neoplasm of breast (principal); Z85.3 Personal history of malignant neoplasm of breast; Z80.3 Family history of malignant neoplasm of breast
CPT/HCPCS: 77063; 77067

== ENCOUNTER → 2021-12-30 | Outpatient (CLI) | payer MEDICARE, SELFPAY ==
[2021-12-30 12:14] LABS: Absolute Lymphocyte Count 2.49 X10^3/uL (0.83-4.51); Absolute Neutrophil Count 4.6 X10^3/uL (2.0-7.7); Basophil# 0.08 X10^3/uL; Eosinophil# 0.49 X10^3/uL; Eosinophils% 5.9 % (0-5); Hematocrit 40.3 % (37-47); Hemoglobin 12.7 g/dL (12.0-15.0); Lymphocyte # 2.49 X10^3/ul (0.83-4.51); Lymphocyte % 29.9 % (19-41); Mean Corp Hgb Conc 31.5 g/dL (32-36); Mean Corpuscular Hgb 30.9 pg (27.0-32.0); Mean Corpuscular Volume 98.1 fL (81-99); Mean Platelet Vol. 10.4 fl (6.2-12.0); Monocyte# 0.69 X10^3/uL; Monocyte% 8.3 % (0-10); NRBC Flagged by Analyzer 0 % (0-5); Neutrophil # 4.56 X10^3/uL (2.7-7.7); Neutrophil % 54.7 % (47-70); Platelet Count 299 K/mm3 (150-450); RBC Distribution Width CV 14.2 % (11.6-14.6); Red Blood Count 4.11 M/mm3 (4.2-5.4); White Blood Count 8.3 K/mm3 (4.4-11.0)
[2021-12-30 12:49] LABS: AST(SGOT) 37 U/L (15-37); Alanine Aminotransfer ALT/SGPT 15 U/L (13-56); Albumin, Serum 3.2 g/dL (3.2-5.0); Alkaline Phosphatase 68 U/L (45-117); Anion Gap 8 (5-15); BUN 28 mg/dL (7-18); BUN/Creat Ratio 18.2 RATIO (10-20); Calcium,Total 9.7 mg/dL (8.5-10.1); Chloride 107 mmol/L (98-107); Creatinine, Serum 1.54 mg/dL (0.55-1.02); EST Glomerular Filtration Rate 34 mL/min (>60); Est Glom Filt Rate - Afr Amer 41 mL/min (>60); Globulin 3.2 g/dL (2.2-4.2); Glucose 80 mg/dL (74-106); Potassium 4.1 mmol/L (3.5-5.1); Protein, Total 6.4 g/dL (6.4-8.2); Sodium Level 144 mmol/L (136-145); Thyroid Stim Hormone (TSH) 1.03 uIU/mL (0.358-3.74)
== END | disposition home or self-care (01) ==
LOC: POLAB3 11:33
PROVIDERS: PCP Family Medicine Geriatric Medicine; Visit Provider Family Medicine Geriatric Medicine
DX: E55.9 Vitamin D deficiency, unspecified (principal); I10 Essential (primary) hypertension
CPT/HCPCS: 36415; 80053; 82306; 84443; 85025

== ENCOUNTER → 2022-03-31 | Outpatient (CLI) | payer MEDICARE, SELFPAY ==
[2022-03-31 12:23] LABS: Absolute Lymphocyte Count 2.13 X10^3/uL (0.83-4.51); Absolute Neutrophil Count 3.7 X10^3/uL (2.0-7.7); Basophil# 0.04 X10^3/uL; Basophil% 0.6 % (0-1); Eosinophil# 0.42 X10^3/uL; Hematocrit 38.1 % (37-47); Hemoglobin 12.4 g/dL (12.0-15.0); Lymphocyte # 2.13 X10^3/ul (0.83-4.51); Lymphocyte % 30.6 % (19-41); Mean Corp Hgb Conc 32.5 g/dL (32-36); Mean Corpuscular Hgb 31.2 pg (27.0-32.0); Mean Platelet Vol. 9.7 fl (6.2-12.0); Monocyte% 8.6 % (0-10); NRBC Flagged by Analyzer 0 % (0-5); Neutrophil # 3.74 X10^3/uL (2.7-7.7); Neutrophil % 53.9 % (47-70); Platelet Count 264 K/mm3 (150-450); RBC Distribution Width CV 12.9 % (11.6-14.6); RBC Distribution Width SD 46.4 fl (35.1-43.9); Red Blood Count 3.97 M/mm3 (4.2-5.4)
[2022-03-31 12:55] LABS: ALB/GLOB Ratio 0.9 RATIO (0.9-2.4); AST(SGOT) 18 U/L (15-37); Alanine Aminotransfer ALT/SGPT 14 U/L (13-56); Albumin, Serum 3.2 g/dL (3.2-5.0); Alkaline Phosphatase 78 U/L (45-117); Anion Gap 4 (5-15); BUN 19 mg/dL (7-18); BUN/Creat Ratio 19.4 RATIO (10-20); Calcium,Total 9.2 mg/dL (8.5-10.1); Chloride 106 mmol/L (98-107); Creatinine, Serum 0.98 mg/dL (0.55-1.02); EST Glomerular Filtration Rate 57 mL/min (>60); Est Glom Filt Rate - Afr Amer 69 mL/min (>60); Globulin 3.5 g/dL (2.2-4.2); Glucose 68 mg/dL (74-106); Potassium 3.8 mmol/L (3.5-5.1); Protein, Total 6.7 g/dL (6.4-8.2); Sodium Level 141 mmol/L (136-145); Thyroid Stim Hormone (TSH) 1.07 uIU/mL (0.358-3.74)
[2022-03-31 13:13] LABS: Vitamin D,25 Hydroxy 58.5 ng/mL
== END | disposition home or self-care (01) ==
LOC: POLAB3 09:43
PROVIDERS: PCP Family Medicine Geriatric Medicine; Visit Provider Family Medicine Geriatric Medicine
DX: I10 Essential (primary) hypertension (principal); E55.9 Vitamin D deficiency, unspecified
CPT/HCPCS: 36415; 80053; 82306; 84443; 85025

== ENCOUNTER → 2022-04-14 | Outpatient (CLI) | payer MEDICARE, SELFPAY ==
--- NOTE | 2022-04-14 12:21 | US_ITS ---
STUDY: RENAL ULTRASOUND - COMPLETE REASON FOR EXAM: Female, 86 years old. CKD TECHNIQUE: Ultrasound evaluation of the kidneys was performed with real-time and static rossi-scale imaging. COMPARISON: None. FINDINGS: RIGHT KIDNEY: Normal location of the right kidney, which is normal in size. The right kidney measures 9.7 cm x 4.5 cm x 4.9 cm. There is a normal cortex of the right kidney. The renal cortex measures 1.6 cm. There is a 1.5 cm x 1.2 cm x 0.9 cm cyst. 7 mm x 6 mm x 5 mm nonobstructive calculus. There is no right hydronephrosis. DISTAL RIGHT URETER: There is non-visualization of the distal right ureter. There is no demonstrated right ureterovesical junction calculus. There is a visualized right ureteral jet. LEFT KIDNEY: Normal location of the left kidney, which is normal in size. The left kidney measures 10 cm x 3 cm x 4.2 cm. There is a normal cortex of the left kidney. The renal cortex measures 1.5 cm. There is no left renal mass or cyst. There are no left renal calculi. There is no left hydronephrosis. DISTAL LEFT URETER: There is non-visualization of the distal left ureter. There is no demonstrated left ureterovesical junction calculus. There is a visualized left ureteral jet. BLADDER: The bladder is empty at the time of the examination. US/Kidney and Bladder IMPRESSION: 1.5 cm x 1.2 cm x 0.9 cm right renal cyst. 7 mm x 6 mm x 5 mm nonobstructive calculus in the right kidney. Electronically Signed: Jamar Rodgers MD at 15:44 EDT ,
== END | disposition home or self-care (01) ==
PROVIDERS: PCP Family Medicine Geriatric Medicine; Referring Provider Internal Medicine Nephrology; Visit Provider Internal Medicine Nephrology
DX: N18.32 Chronic kidney disease, stage 3b (principal)
CPT/HCPCS: 76770

== ENCOUNTER → 2022-07-07 | Outpatient (CLI) | payer MEDICARE, SELFPAY ==
[2022-07-07 12:34] LABS: Absolute Neutrophil Count 6.5 X10^3/uL (2.0-7.7); Basophil# 0.04 X10^3/uL; Basophil% 0.4 % (0-1); Eosinophil# 0.31 X10^3/uL; Eosinophils% 3.4 % (0-5); Hematocrit 42.9 % (37-47); Hemoglobin 13.4 g/dL (12.0-15.0); Lymphocyte % 17.3 % (19-41); Mean Corp Hgb Conc 31.2 g/dL (32-36); Mean Corpuscular Hgb 29.8 pg (27.0-32.0); Mean Corpuscular Volume 95.3 fL (81-99); Monocyte# 0.73 X10^3/uL; Monocyte% 7.9 % (0-10); NRBC Flagged by Analyzer 0 % (0-5); Neutrophil # 6.54 X10^3/uL (2.7-7.7); Neutrophil % 70.7 % (47-70); Platelet Count 285 K/mm3 (150-450); RBC Distribution Width CV 13.5 % (11.6-14.6); RBC Distribution Width SD 47.6 fl (35.1-43.9); White Blood Count 9.3 K/mm3 (4.4-11.0)
[2022-07-07 13:05] LABS: Vitamin D,25 Hydroxy 44.8 ng/mL
[2022-07-07 13:19] LABS: ALB/GLOB Ratio 0.8 RATIO (0.9-2.4); AST(SGOT) 11 U/L (15-37); Alanine Aminotransfer ALT/SGPT 10 U/L (13-56); Alkaline Phosphatase 84 U/L (45-117); Anion Gap 5 (5-15); BUN 21 mg/dL (7-18); BUN/Creat Ratio 21.8 RATIO (10-20); Calcium,Total 9.3 mg/dL (8.5-10.1); Chloride 105 mmol/L (98-107); Creatinine, Serum 0.96 mg/dL (0.55-1.02); EST Glomerular Filtration Rate 58 mL/min (>60); Est Glom Filt Rate - Afr Amer 70 mL/min (>60); Globulin 3.7 g/dL (2.2-4.2); Glucose 102 mg/dL (74-106); Potassium 3.8 mmol/L (3.5-5.1); Protein, Total 6.7 g/dL (6.4-8.2); Sodium Level 141 mmol/L (136-145); Thyroid Stim Hormone (TSH) 0.85 uIU/mL (0.358-3.74)
== END | disposition home or self-care (01) ==
LOC: POLAB3 11:49
PROVIDERS: PCP Family Medicine Geriatric Medicine; Visit Provider Family Medicine Geriatric Medicine
DX: I10 Essential (primary) hypertension (principal); E55.9 Vitamin D deficiency, unspecified
CPT/HCPCS: 36415; 80053; 82306; 84443; 85025

== ENCOUNTER → 2022-09-29 | Outpatient (CLI) | payer MEDICARE, SELFPAY ==
[2022-09-29 12:43] LABS: Vitamin D,25 Hydroxy 40.3 ng/mL
[2022-09-29 12:48] LABS: Absolute Lymphocyte Count 2.22 X10^3/uL (0.83-4.51); Absolute Neutrophil Count 3.5 X10^3/uL (2.0-7.7); Basophil# 0.04 X10^3/uL; Basophil% 0.6 % (0-1); Eosinophil# 0.52 X10^3/uL; Eosinophils% 7.6 % (0-5); Hematocrit 40.3 % (37-47); Hemoglobin 12.7 g/dL (12.0-15.0); Lymphocyte # 2.22 X10^3/ul (0.83-4.51); Lymphocyte % 32.6 % (19-41); Mean Corp Hgb Conc 31.5 g/dL (32-36); Mean Corpuscular Hgb 29.5 pg (27.0-32.0); Mean Corpuscular Volume 93.5 fL (81-99); Mean Platelet Vol. 10.1 fl (6.2-12.0); Monocyte# 0.54 X10^3/uL; Monocyte% 7.9 % (0-10); NRBC Flagged by Analyzer 0 % (0-5); Neutrophil # 3.46 X10^3/uL (2.7-7.7); Platelet Count 302 K/mm3 (150-450); RBC Distribution Width CV 13.9 % (11.6-14.6); RBC Distribution Width SD 47.8 fl (35.1-43.9); Red Blood Count 4.31 M/mm3 (4.2-5.4); White Blood Count 6.8 K/mm3 (4.4-11.0)
[2022-09-29 13:02] LABS: ALB/GLOB Ratio 0.9 RATIO (0.9-2.4); AST(SGOT) 17 U/L (15-37); Alanine Aminotransfer ALT/SGPT 10 U/L (13-56); Albumin, Serum 3.2 g/dL (3.2-5.0); Alkaline Phosphatase 79 U/L (45-117); Anion Gap 7 (5-15); BUN 28 mg/dL (7-18); BUN/Creat Ratio 25.5 RATIO (10-20); Calcium,Total 9.4 mg/dL (8.5-10.1); Chloride 109 mmol/L (98-107); EST Glomerular Filtration Rate 50 mL/min (>60); Est Glom Filt Rate - Afr Amer 60 mL/min (>60); Globulin 3.5 g/dL (2.2-4.2); Glucose 85 mg/dL (74-106); Protein, Total 6.7 g/dL (6.4-8.2); Sodium Level 142 mmol/L (136-145); Thyroid Stim Hormone (TSH) 1.63 uIU/mL (0.358-3.74)
== END | disposition home or self-care (01) ==
LOC: POLAB3 10:48
PROVIDERS: PCP Family Medicine Geriatric Medicine; Visit Provider Family Medicine Geriatric Medicine
DX: I10 Essential (primary) hypertension (principal); E55.9 Vitamin D deficiency, unspecified
CPT/HCPCS: 36415; 80053; 82306; 84443; 85025

== ENCOUNTER → 2023-03-16 | Outpatient (CLI) | payer MEDICARE, SELFPAY ==
[2023-03-16 10:30] LABS: Absolute Lymphocyte Count 2.01 X10^3/uL (0.83-4.51); Absolute Neutrophil Count 4.5 X10^3/uL (2.0-7.7); Basophil# 0.05 X10^3/uL; Basophil% 0.7 % (0-1); Eosinophil# 0.44 X10^3/uL; Eosinophils% 5.9 % (0-5); Hematocrit 43.4 % (37-47); Hemoglobin 13.8 g/dL (12.0-15.0); Lymphocyte # 2.01 X10^3/ul (0.83-4.51); Lymphocyte % 26.8 % (19-41); Mean Corp Hgb Conc 31.8 g/dL (32-36); Mean Corpuscular Hgb 29.7 pg (27.0-32.0); Mean Corpuscular Volume 93.5 fL (81-99); Mean Platelet Vol. 9.9 fl (6.2-12.0); Monocyte# 0.51 X10^3/uL; Monocyte% 6.8 % (0-10); NRBC Flagged by Analyzer 0 % (0-5); Neutrophil # 4.48 X10^3/uL (2.7-7.7); Neutrophil % 59.5 % (47-70); Platelet Count 303 K/mm3 (150-450); RBC Distribution Width CV 13.7 % (11.6-14.6); RBC Distribution Width SD 46.9 fl (35.1-43.9); Red Blood Count 4.64 M/mm3 (4.2-5.4); White Blood Count 7.5 K/mm3 (4.4-11.0)
[2023-03-16 10:55] LABS: Vitamin D,25 Hydroxy 46.2 ng/mL
[2023-03-16 11:03] LABS: ALB/GLOB Ratio 0.9 RATIO (0.9-2.4); AST(SGOT) 12 U/L (15-37); Alanine Aminotransfer ALT/SGPT 9 U/L (13-56); Albumin, Serum 3.2 g/dL (3.2-5.0); Alkaline Phosphatase 82 U/L (45-117); Anion Gap 3 (5-15); BUN 19 mg/dL (7-18); Calcium,Total 9.6 mg/dL (8.5-10.1); Chloride 108 mmol/L (98-107); Creatinine, Serum 1.12 mg/dL (0.55-1.02); EST Glomerular Filtration Rate 49 mL/min (>60); Est Glom Filt Rate - Afr Amer 59 mL/min (>60); Globulin 3.5 g/dL (2.2-4.2); Glucose 77 mg/dL (74-106); Protein, Total 6.7 g/dL (6.4-8.2); Sodium Level 141 mmol/L (136-145); Thyroid Stim Hormone (TSH) 1.61 uIU/mL (0.358-3.74)
== END | disposition home or self-care (01) ==
PROVIDERS: PCP Family Medicine Geriatric Medicine; Visit Provider Family Medicine Geriatric Medicine
DX: I10 Essential (primary) hypertension (principal); E55.9 Vitamin D deficiency, unspecified
CPT/HCPCS: 36415; 80053; 82306; 84443; 85025

== ENCOUNTER → 2023-10-05 | Outpatient (CLI) | payer MEDICARE, SELFPAY ==
[2023-10-05 11:43] LABS: Absolute Lymphocyte Count 1.64 X10^3/uL (0.83-4.51); Absolute Neutrophil Count 5.5 X10^3/uL (2.0-7.7); Basophil# 0.05 X10^3/uL; Basophil% 0.6 % (0-1); Eosinophil# 0.35 X10^3/uL; Eosinophils% 4.3 % (0-5); Hematocrit 45.2 % (37-47); Hemoglobin 14.1 g/dL (12.0-15.0); Lymphocyte # 1.64 X10^3/ul (0.83-4.51); Mean Corp Hgb Conc 31.2 g/dL (32-36); Mean Corpuscular Hgb 29.4 pg (27.0-32.0); Mean Corpuscular Volume 94.2 fL (81-99); Mean Platelet Vol. 9.9 fl (6.2-12.0); Monocyte# 0.62 X10^3/uL; Monocyte% 7.6 % (0-10); NRBC Flagged by Analyzer 0 % (0-5); Neutrophil # 5.51 X10^3/uL (2.7-7.7); Neutrophil % 67.1 % (47-70); Platelet Count 360 K/mm3 (150-450); RBC Distribution Width CV 14.4 % (11.6-14.6); RBC Distribution Width SD 49.6 fl (35.1-43.9); White Blood Count 8.2 K/mm3 (4.4-11.0)
[2023-10-05 11:58] LABS: Vitamin D,25 Hydroxy 41.7 ng/mL
[2023-10-05 12:04] LABS: ALB/GLOB Ratio 0.9 RATIO (0.9-2.4); AST(SGOT) 10 U/L (15-37); Alanine Aminotransfer ALT/SGPT 8 U/L (13-56); Alkaline Phosphatase 81 U/L (45-117); Anion Gap 2 (5-15); BUN 12 mg/dL (7-18); BUN/Creat Ratio 11.7 RATIO (10-20); Calcium,Total 9.4 mg/dL (8.5-10.1); Chloride 107 mmol/L (98-107); Creatinine, Serum 1.03 mg/dL (0.55-1.02); EST Glomerular Filtration Rate 54 mL/min (>60); Est Glom Filt Rate - Afr Amer 65 mL/min (>60); Globulin 3.4 g/dL (2.2-4.2); Glucose 84 mg/dL (74-106); Protein, Total 6.4 g/dL (6.4-8.2); Sodium Level 141 mmol/L (136-145); Thyroid Stim Hormone (TSH) 1.34 uIU/mL (0.358-3.74)
--- OUTSIDE RECORDS SUMMARY | 2023-10-05 16:54 | XMS RPT_ITS | CCD ---
Author Name Unknown Address [address] [place] [id number] Organization [facility] Care Team Providers [employer] Sales Representative Name Role Phone Jose Miguel Hall Unavailable Unav ailable Jose Miguel Hall Unavailable Unav ailable Problems Active Problems Problem Classification Problem Date Documented Da te Episodic/Chronic Unclassified (1 source) Unknown / UNK(Unknown) Onset: 05-15-2018 Past or Other Problems Problem Classification Problem Date Documented Da te Episodic/Chronic Unclassified (1 source) NEUROLOGICAL Onset: 05-15-2018 Results Test Name Value Interpretation Reference Range Facil ity Encounters Encounter Date Encounter Type Care Provider Facility Start: 05-15-2018 Patient encounter procedure Jose Miguel Hall Facility:[facility] Payers Date Payer Category Payer Medicare [id number] Self-pay [id number] Unknown [id number] Unknown [id number] Summary Purpose Family History No Family History Records Found Advance Directives No Advanced Directives Records Found Additional Source Comments INFORMATION SOURCE (unrecogn ized section and content) FOR RECORDS PERTAINING TO PATIENTS WHO ARE OR HAVE BEEN ENROLLED IN A CHEMICAL DEPENDENCY/SUBSTANCEABUSE PROGRAM, SOME INFORMATION MAY BE OMITTED. This clinical summary was aggregated from multiple sources. Caution should be exercised in using it in the provision of clinical care. This summary normalizes information from multiple sources, and as a consequence, information in this document may materially change the coding, format and clinical context of patient data. In addition, data may be omitted in some cases. CLINICAL DECISIONS SHOULD BE BASED ON THE PRIMARY CLINICAL RECORDS. [employer] provides no warranty or guarantee of the accuracy or completeness of information in this document.
== END | disposition home or self-care (01) ==
LOC: POLAB3 10:47
PROVIDERS: PCP Family Medicine Geriatric Medicine; Visit Provider Family Medicine Geriatric Medicine
DX: I10 Essential (primary) hypertension (principal); E55.9 Vitamin D deficiency, unspecified
CPT/HCPCS: 36415; 80053; 82306; 84443; 85025

== ENCOUNTER → 2024-04-11 | Outpatient (CLI) | payer MEDICARE, SELFPAY ==
[2024-04-11 11:21] LABS: Absolute Lymphocyte Count 2.08 X10^3/uL (0.83-4.51); Absolute Neutrophil Count 4.3 X10^3/uL (2.0-7.7); Basophil# 0.06 X10^3/uL; Basophil% 0.8 % (0-1); Eosinophil# 0.67 X10^3/uL; Eosinophils% 8.7 % (0-5); Hematocrit 45.4 % (37-47); Hemoglobin 14.5 g/dL (12.0-15.0); Lymphocyte # 2.08 X10^3/ul (0.83-4.51); Mean Corp Hgb Conc 31.9 g/dL (32-36); Mean Corpuscular Hgb 29.8 pg (27.0-32.0); Mean Corpuscular Volume 93.4 fL (81-99); Mean Platelet Vol. 9.7 fl (6.2-12.0); Monocyte# 0.58 X10^3/uL; Monocyte% 7.5 % (0-10); NRBC Flagged by Analyzer 0 % (0-5); Neutrophil # 4.31 X10^3/uL (2.7-7.7); Neutrophil % 55.9 % (47-70); Platelet Count 302 K/mm3 (150-450); RBC Distribution Width CV 13.6 % (11.6-14.6); RBC Distribution Width SD 46.3 fl (35.1-43.9); Red Blood Count 4.86 M/mm3 (4.2-5.4); White Blood Count 7.7 K/mm3 (4.4-11.0)
[2024-04-11 11:48] LABS: Vitamin D,25 Hydroxy 42.3 ng/mL
[2024-04-11 11:58] LABS: ALB/GLOB Ratio 0.8 RATIO (0.9-2.4); AST(SGOT) 14 U/L (15-37); Alanine Aminotransfer ALT/SGPT 10 U/L (13-56); Albumin, Serum 3.2 g/dL (3.2-5.0); Alkaline Phosphatase 81 U/L (45-117); Anion Gap 4 (5-15); BUN 17 mg/dL (7-18); Calcium,Total 9.8 mg/dL (8.5-10.1); Chloride 108 mmol/L (98-107); Creatinine, Serum 1.06 mg/dL (0.55-1.02); EST Glomerular Filtration Rate 52 mL/min (>60); Est Glom Filt Rate - Afr Amer 63 mL/min (>60); Globulin 3.8 g/dL (2.2-4.2); Glucose 81 mg/dL (74-106); Potassium 3.9 mmol/L (3.5-5.1); Sodium Level 142 mmol/L (136-145)
== END | disposition home or self-care (01) ==
LOC: POLAB3 10:48
PROVIDERS: PCP Family Medicine Geriatric Medicine; Visit Provider Family Medicine Geriatric Medicine
DX: I10 Essential (primary) hypertension (principal); E55.9 Vitamin D deficiency, unspecified
CPT/HCPCS: 36415; 80053; 82306; 84443; 85025

== ENCOUNTER → 2024-10-17 | Outpatient (CLI) | payer MEDICARE, SELFPAY ==
[2024-10-17 11:19] LABS: Absolute Lymphocyte Count 2.23 X10^3/uL (0.83-4.51); Absolute Neutrophil Count 4.4 X10^3/uL (2.0-7.7); Basophil# 0.06 X10^3/uL; Basophil% 0.8 % (0-1); Eosinophil# 0.43 X10^3/uL; Eosinophils% 5.5 % (0-5); Hematocrit 45.6 % (37-47); Hemoglobin 14.5 g/dL (12.0-15.0); Lymphocyte # 2.23 X10^3/ul (0.83-4.51); Lymphocyte % 28.4 % (19-41); Mean Corp Hgb Conc 31.8 g/dL (32-36); Mean Corpuscular Hgb 29.2 pg (27.0-32.0); Mean Corpuscular Volume 91.8 fL (81-99); Mean Platelet Vol. 9.8 fl (6.2-12.0); Monocyte% 8.9 % (0-10); NRBC Flagged by Analyzer 0 % (0-5); Neutrophil % 56.1 % (47-70); Platelet Count 303 K/mm3 (150-450); RBC Distribution Width CV 14.5 % (11.6-14.6); RBC Distribution Width SD 48.7 fl (35.1-43.9); Red Blood Count 4.97 M/mm3 (4.2-5.4); White Blood Count 7.8 K/mm3 (4.4-11.0)
[2024-10-17 12:20] LABS: ALB/GLOB Ratio 1.4 RATIO (0.9-2.4); AST(SGOT) 20 U/L (<=31); Alanine Aminotransfer ALT/SGPT 11 U/L (<=34); Albumin, Serum 4.1 g/dL (3.4-4.8); Alkaline Phosphatase 91 U/L (35-104); Anion Gap 12 (5-15); BUN 16 mg/dL (4-19); BUN/Creat Ratio 17.7 RATIO (10-20); Carbon Dioxide 25.2 mmol/L (21.0-32.0); Chloride 105 mmol/L (98-108); Creatinine, Serum 0.91 mg/dL (0.70-1.20); EST Glomerular Filtration Rate 61 (>60); Glucose 75 mg/dL (70-99); Potassium 4.1 mmol/L (3.3-5.1); Sodium Level 142 mmol/L (133-145); Total Bilirubin 0.31 mg/dL (0.00-1.30)
== END | disposition home or self-care (01) ==
LOC: POLAB3 11:05
PROVIDERS: PCP Family Medicine Geriatric Medicine; Visit Provider Family Medicine Geriatric Medicine
DX: I10 Essential (primary) hypertension (principal); E55.9 Vitamin D deficiency, unspecified
CPT/HCPCS: 36415; 80053; 82306; 84443; 85025

== ENCOUNTER → 2024-12-25 | Outpatient (CLI) | payer MEDICARE, SELFPAY ==
--- NOTE | 2024-12-25 15:15 | CT_ITS ---
EXAM: CT Head Without Intravenous Contrast CLINICAL INDICATION: ENCEPHALOPATHY TECHNIQUE: Axial computed tomography images of the head/brain without intravenous contrast. This CT exam was performed using one or more of the following dose reduction techniques: automated exposure control, adjustment of the mA and/or kV according to patient size, and/or use of iterative reconstruction technique. COMPARISON: No relevant prior studies available. FINDINGS: BRAIN AND EXTRA-AXIAL SPACES: The cerebral and cerebellar sulci are prominent consistent with brain atrophy. Areas of decreased attenuation in the deep cerebral white matter are consistent with small vessel ischemic/degenerative changes. No acute intracranial hemorrhage, midline shift or mass effect. If symptoms persist, further evaluation with MRI is recommended. BONES/JOINTS: Unremarkable. No acute fracture. SOFT TISSUES: Unremarkable. SINUSES: Unremarkable as visualized. No acute sinusitis. MASTOID AIR CELLS: Unremarkable as visualized. No mastoid effusion. CT/Brain/Head without Contrast IMPRESSION: 1. Generalized brain atrophy. 2. Small vessel ischemic/degenerative changes. 3. No acute intracranial hemorrhage, midline shift or mass effect. If symptoms persist, further evaluation with MRI is recommended. Reading [facility]
[2024-12-25 17:12] LABS: Absolute Lymphocyte Count 2.67 X10^3/uL (0.83-4.51); Basophil# 0.04 X10^3/uL; Basophil% 0.4 % (0-1); Eosinophil# 0.47 X10^3/uL; Eosinophils% 5.2 % (0-5); Hematocrit 45.8 % (37-47); Hemoglobin 14.4 g/dL (12.0-15.0); Lymphocyte # 2.67 X10^3/ul (0.83-4.51); Lymphocyte % 29.4 % (19-41); Mean Corp Hgb Conc 31.4 g/dL (32-36); Mean Corpuscular Hgb 29.3 pg (27.0-32.0); Mean Corpuscular Volume 93.1 fL (81-99); Mean Platelet Vol. 10.3 fl (6.2-12.0); Monocyte# 0.85 X10^3/uL; Monocyte% 9.4 % (0-10); NRBC Flagged by Analyzer 0 % (0-5); Neutrophil # 5.02 X10^3/uL (2.7-7.7); Neutrophil % 55.4 % (47-70); Platelet Count 326 K/mm3 (150-450); RBC Distribution Width CV 13.8 % (11.6-14.6); RBC Distribution Width SD 47.8 fl (35.1-43.9); Red Blood Count 4.92 M/mm3 (4.2-5.4); White Blood Count 9.1 K/mm3 (4.4-11.0)
[2024-12-25 17:30] LABS: Anion Gap 9 (5-15); BUN 20 mg/dL (4-19); BUN/Creat Ratio 22.3 RATIO (10-20); Calcium,Total 9.5 mg/dL (7.6-11.0); Carbon Dioxide 27.5 mmol/L (21.0-32.0); Chloride 106 mmol/L (98-108); Creatinine, Serum 0.89 mg/dL (0.70-1.20); EST Glomerular Filtration Rate 62 (>60); Glucose 84 mg/dL (70-99); Potassium 4.6 mmol/L (3.3-5.1); Sodium Level 143 mmol/L (133-145)
== END | disposition home or self-care (01) ==
PROVIDERS: PCP Family Medicine Geriatric Medicine; Referring Provider Family Medicine Geriatric Medicine; Visit Provider Family Medicine Geriatric Medicine
DX: G93.40 Encephalopathy, unspecified (principal); N18.31 Chronic kidney disease, stage 3a; N39.0 Urinary tract infection, site not specified
CPT/HCPCS: 36415; 70450; 80048; 85025; 87086; 87088

== ENCOUNTER → 2025-05-02 | Outpatient (CLI) | payer MEDICARE, SELFPAY ==
[2025-05-02 10:01] LABS: Hematocrit 44.3 % (37-47); Hemoglobin 14.4 g/dL (12.0-15.0); Immature Granulocytes Count 0.030 X10^3/uL (0.0-0.0); Mean Corp Hgb Conc 32.5 g/dL (32-36); Mean Corpuscular Volume 95.1 fL (81-99); Mean Platelet Vol. 10.3 fl (6.2-12.0); NRBC Flagged by Analyzer 0 % (0-5); Platelet Count 301 K/mm3 (150-450); RBC Distribution Width CV 15.4 % (11.6-14.6); RBC Distribution Width SD 54.4 fl (35.1-43.9); Red Blood Count 4.66 M/mm3 (4.2-5.4); White Blood Count 8.5 K/mm3 (4.4-11.0)
[2025-05-02 10:31] LABS: Vitamin D,25 Hydroxy 42.1 ng/mL (30-100)
[2025-05-02 10:35] LABS: AST(SGOT) 12 U/L (<=31); Alanine Aminotransfer ALT/SGPT < 5 U/L (<=34); Albumin, Serum 3.8 g/dL (3.4-4.8); Alkaline Phosphatase 59 U/L (35-104); Anion Gap 9 (5-15); BUN 13 mg/dL (4-19); BUN/Creat Ratio 15.8 RATIO (10-20); Calcium,Total 9.5 mg/dL (7.6-11.0); Carbon Dioxide 27.8 mmol/L (21.0-32.0); Chloride 106 mmol/L (98-108); Globulin 2.5 g/dL (2.2-4.2); Glucose 82 mg/dL (70-99); Potassium 3.6 mmol/L (3.3-5.1)
== END | disposition home or self-care (01) ==
LOC: POLAB3 09:09
PROVIDERS: PCP Family Medicine Geriatric Medicine; Visit Provider Family Medicine Geriatric Medicine
DX: N39.0 Urinary tract infection, site not specified (principal); I10 Essential (primary) hypertension; E55.9 Vitamin D deficiency, unspecified; E03.9 Hypothyroidism, unspecified
CPT/HCPCS: 36415; 80053; 82306; 84443; 85025; 87086; 87088